=== PATIENT | female | born 1965 | race Caucasian/White ===

== ENCOUNTER 2016-05-05 13:22 | Emergency (ER) | payer OTHER ==
[2016-05-05] MEDS ORDERED: oxyCODONE/Acetamin 5/325 MG* TAB PO ONE (16:35)
--- NOTE | 2016-05-05 17:02 | RAD ---
INDICATION: Bone by 24 head COMPARISON: None TECHNIQUE: Axial source images were acquired through the orbits. Coronal and sagittal reconstructed images were acquired. FINDINGS: Bones: There is no acute orbital fracture or fractures visualized facial bones. Orbits: The globes and intraconal structures appear intact. The optic nerves are symmetric. Extraocular muscles appear normal. There is no intraconal inflammatory change or retrobulbar mass.. Paranasal sinuses: The paranasal sinuses are clear. Brain: There are no acute abnormalities of the visualized brain parenchyma. Soft tissues: There there is mild soft tissue swelling in the frontal region to the left of midline. There is no foreign body Other: None The visualized soft tissue elements about the neck appear normal. IMPRESSION: NONCONTRAST CT IMAGING OF THE ORBITS DEMONSTRATE NO SPECIFIC CT ABNORMALITIES.
--- NOTE | 2016-05-05 17:21 | ED ---
Throat Pain/Nasal Congestion - HPI Summary HPI Summary: Patient presents to ED with CC of left eye pain, swelling, warmth, redness and blurry vision. 3 days ago, patient was bit by a spider (spider was not witnessed), with immediate swelling, redness and warmth over the lesion. 1 day later, she began to experience blurry vision and other symptoms listed above. Now, since this morning the redness and warmth has spread to the right eye, however she denies blurry vision. 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 Denies fever. - History of Current Complaint Chief Complaint: EDEyeProblem Hx Obtained From: Patient Onset/Duration: Gradual Onset Severity: Moderate Associated Signs And Symptoms: Positive: Negative Related History: Smoking - Epiglottits Risk Factors Epiglottis Risk Factors: Negative - Allergies/Home Medications Allergies/Adverse Reactions: Allergies Allergy/AdvReac Type Severity Reaction Status Date / Time Ibuprofen [From Motrin] Allergy Intermediate FACIAL Verified 05/05/16 13:26 SWELLING PMH/Surg Hx/FS Hx/Imm Hx Previously Healthy: Yes Endocrine/Hematology History: Reports: Hx Diabetes - IDDM Cardiovascular History: Denies: Other Cardiovascular Problems/Disorders Respiratory History: Reports: Hx Asthma - albuterol and advair INHALERS + singulair, Hx Seasonal Allergies - takes daily anti-histamines Denies: Other Respiratory Problems/Disorders GI History: Reports: Hx Gastroesophageal Reflux Disease - omeprazole, Hx Ulcer Denies: Other GI Disorders Musculoskeletal History: Reports: Hx Tendonitis - RIGHT HAND Denies: Hx Osteoporosis Comment Only: Hx Arthritis - RIGHT KNEE, LEFT SHOULDER Sensory History: Reports: Hx Contacts or Glasses - bifocals Opthamlomology History: Reports: Hx Contacts or Glasses - bifocals Neurological History: Reports: Hx Headaches Denies: Other Neuro Impairments/Disorders Psychiatric History: Reports: Hx Anxiety - ON MEDS, Hx Depression - ON MEDS - Surgical History Surgery Procedure, Year, and Place: RIGHT CARPAL TUNNEL, 2003, [facility]. 2006, HYSTERECTOMY, [facility]. 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, Hx Shingles - LEFT SIDE OF FACE Denies: Traveled Outside the [place] in Last 30 Days - Family History Known Family History: Positive: Hypertension, Diabetes - Social History Occupation: Disabled Lives: Alone Alcohol Use: None Substance Use Type: Reports: None Smoking Status (MU): Former Smoker Type: Cigarettes Amount Used/How Often: PACK A DAY Have You Smoked in the Last Year: Yes Review of Systems Constitutional: Negative Positive: Blurred Vision - of left eye, Erythema - lanny-oribital erythema bilaterally ENT: Negative Cardiovascular: Negative Respiratory: Negative Positive: Other - small 1X1 raised lesion over L side forehead with erythema surrounding, with no excoriation or drainage. does not itch Neurological: Negative Psychological: Normal All Other Systems Reviewed And Are Negative: Yes Physical Exam Triage Information Reviewed: Yes Vital Signs On Initial Exam: Initial Vitals Temp Pulse Resp BP Pulse Ox 98.5 F 94 18 103/70 95 05/05/16 13:26 05/05/16 13:26 05/05/16 13:26 05/05/16 13:26 05/05/16 13:26 Vital Signs Reviewed: Yes Appearance: Positive: Well-Appearing, No Pain Distress Skin: Positive: Warm, Erythema @ - eyes bilaterally, Other - lanny-oribital erythema bilaterally. small 1X1 raised lesion over L side forehead with erythema surrounding, with no excoriation or drainage. does not itch Head/Face: Positive: Normal Head/Face Inspection Eyes: Positive: EOMI, MARINA, Conjunctiva Inflammed - conjunctiva without exudates ENT: Positive: Pharynx normal, TMs normal Neck: Positive: Supple, Nontender, No Lymphadenopathy Respiratory/Lung Sounds: Positive: Clear to Auscultation Cardiovascular: Positive: Normal Musculoskeletal: Positive: Normal Neurological: Positive: Normal Psychiatric: Positive: Normal AVPU Assessment: Alert Diagnostics - Vital Signs Vital Signs Temp Pulse Resp BP Pulse Ox 05/05/16 14:57 98.9 F 84 18 107/76 98 05/05/16 13:26 98.5 F 94 18 103/70 95 - Laboratory Lab Statement: Any lab studies that have been ordered have been reviewed, and results considered in the medical decision making process. - CT No standard instances CT Interpretation: No Acute Changes, Positive (See Comments) CT Interpretation Completed By: Radiologist - orbital CT negative for acute findings. EENT Course/Dx - Course Course Of Treatment: erythema, warmth, blurry vision surrounding eyes bilaterally. CT of the orbit showed no acute changes or findings. Patient without temp. previous MRSA positive of face. 1X1 raised lesion over L eye/ forehead with surrounding erythema. EOMI. Denies pain behind eye or heat from eye. This is likely a cellulitis infection possibly caused by the forehead lesion. preseptal cellulitis is likely. Can be treated as outpatient with clindamycin and erythromycin ointment. MD made aware and agrees with plan. Close follow up this week with opthomology. - Differential Diagnoses Differential Diagnoses: Cellulitis, Glaucoma, Periorbital/Orbital Cellulitis, Uveitis - Diagnoses Provider Diagnoses: Cellulitis and abscess of face Discharge - Discharge Plan Condition: Stable Disposition: HOME Prescriptions: Clindamycin Cap(NF) [Cleocin 300 mg Cap(NF)] 300 mg PO Q6H #28 cap MDD 4 Clindamycin Cap(NF) [Cleocin 300 mg Cap(NF)] 300 mg PO Q6H #28 cap MDD 4 HYDROcodone/ACETAMIN 5-325 MG* [[place] 5-325 TAB*] 1 tab PO Q4H PRN #15 tab MDD 6 PRN Reason: Pain HYDROcodone/ACETAMIN 5-325 MG* [[place] 5-325 TAB*] 1 tab PO Q4H PRN #15 tab MDD 6 PRN Reason: Pain Hydrocodone-Acetaminophen [Hydrocodone/Acetaminophen 5-325 mg] 1 tab PO Q4HR PRN #15 tab MDD 6 PRN Reason: Pain Tobramycin 0.3% OPHTH.MARYANN* 1 drop BOTH EYES Q4H #1 btl Tobramycin 0.3% OPHTH.MARYANN* 1 drop BOTH EYES Q4H #1 btl Patient Education Materials: Cellulitis (ED) Referrals: Trevon Ha MD [Primary Care Provider] - Apollo Malik MD [Medical Doctor] - Additional Instructions: Come back to ED if fever develops. Follow up with ophthalmology this week. If worsening blurry vision, you develop RUBIN, worsening redness, warmth or red streaking away from the eye, come back to ED. Clindamycin has been prescribed to you. Do not stop taking this medication until gone. Tobramycin drops in each eye 4 times daily until symptoms are gone. Hydrocodone-acetaminophen as needed for pain associated symptoms. Images - Images Head: 1 - small 1X1 raised papule with surrounding erythema without excoriations or drainage 2 - erythema and slight swelling surround eyes bilaterally with warmth and tenderness
[2016-05-05] MEDS ORDERED: HYDROcodone/ACETAMIN 5-325 MG* 1 TAB PO ONE (18:07)
[2016-05-05] MEDS ORDERED: Clindamycin CAP* 150 MG PO ONE ×2 (18:13→18:16)
[2016-05-05] MEDS ORDERED: Tobramycin/Dexameth OPTH.SUSP* 2.5 M L BTL BOTH EYES SCH (18:30)
[2016-05-05 18:56] VITALS: BP 111/70
== END 2016-05-05 18:55 | disposition home or self-care (01) ==
LOC: ED 13:22
DX: L03.211 Cellulitis of face (principal)
CPT/HCPCS: 70480; 99283; A9270-GY

== ENCOUNTER 2018-04-03 10:05 | Emergency (ER) | payer OTHER ==
--- NOTE | 2018-04-03 10:47 | ED ---
Throat Pain/Nasal Congestion - HPI Summary HPI Summary: Patient presents with URI symptoms 2 weeks. She reports this started as a sore throat with sneezing, coughing and congestion. She now has sinus pain and pressure and cough - persistent sore throat. She reports she has dysphagia with eating or drinking however she has been drinking coffee during the day and treating juice at night. She also reports a history of diabetes - treats this with Lantus once a day and metformin. She has been checking her glucose and reports between 120-200 which is normal for her - was 87 2 morning ago but hasn' t dropped since. Nausea. Has chest discomfort with coughing in the upper anterior portion however denies other chest pain, shortness of breath, abdominal pain, vomiting, diarrhea, skin rash. Smokes 4 cigs per day and exposed to 2nd hand smoke (brother lives with her and smokes). 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 - History of Current Complaint Chief Complaint: EDFluSymptoms Time Seen by Provider: 04/03/18 10:33 Hx Obtained From: Patient - Allergies/Home Medications Allergies/Adverse Reactions: Allergies Allergy/AdvReac Type Severity Reaction Status Date / Time ibuprofen Allergy Swelling Verified 04/03/18 10:29 Of Face,Lips,& Throat PMH/Surg Hx/FS Hx/Imm Hx Previously Healthy: Yes Endocrine/Hematology History: Reports: Hx Diabetes - IDDM (lanuts + metformin) Denies: Hx Anticoagulant Therapy, Hx Blood Disorders, Autoimmune Disease Cardiovascular History: Denies: Other Cardiovascular Problems/Disorders Respiratory History: Reports: Hx Asthma - albuterol and advair INHALERS + singulair, Hx Seasonal Allergies - takes daily anti-histamines Denies: Other Respiratory Problems/Disorders GI History: Reports: Hx Gastroesophageal Reflux Disease - omeprazole, Hx Ulcer Denies: Other GI Disorders Musculoskeletal History: Reports: Hx Tendonitis - RIGHT HAND Denies: Hx Osteoporosis Comment Only: Hx Arthritis - RIGHT KNEE, LEFT SHOULDER Sensory History: Reports: Hx Contacts or Glasses - bifocals Opthamlomology History: Reports: Hx Contacts or Glasses - bifocals Neurological History: Reports: Hx Headaches, Hx Peripheral Neuropathy - 2ndry to DM Denies: Other Neuro Impairments/Disorders Psychiatric History: Reports: Hx Anxiety - ON MEDS, Hx Depression - ON MEDS - Surgical History Surgery Procedure, Year, and Place: RIGHT CARPAL TUNNEL, 2003, [facility]. 2006, HYSTERECTOMY, [facility]. LEFT SHOULDER, [facility], 2013 Hx Anesthesia Reactions: No Infectious Disease History: No Infectious Disease History: Reports: Hx of Known/Suspected MRSA - eye and corner of mouth, Hx Shingles - LEFT SIDE OF FACE Denies: Traveled Outside the [place] in Last 30 Days - Family History Known Family History: Positive: Hypertension, Diabetes - Social History Lives: With Family - brother Alcohol Use: None Substance Use Type: Reports: Marijuana - as needed for peripheral neuropathy - not daily Hx Tobacco Use: Yes Smoking Status (MU): Current Every Day Smoker Type: Cigarettes Amount Used/How Often: 4 cigs per day - was 2 PPD smoker in past Have You Smoked in the Last Year: Yes Review of Systems Constitutional: Negative Negative: Fever, Chills, Fatigue Eyes: Negative Positive: Sore Throat, Nasal Discharge Cardiovascular: Negative Positive: Cough Positive: Nausea. Negative: Abdominal Pain, Vomiting, Diarrhea Genitourinary: Negative Musculoskeletal: Negative Skin: Negative Positive: Headache - sinus pain/pressure Psychological: Normal All Other Systems Reviewed And Are Negative: Yes Physical Exam Triage Information Reviewed: Yes Vital Signs On Initial Exam: Initial Vitals Temp Pulse Resp BP Pulse Ox 97.6 F 81 20 133/64 95 04/03/18 10:12 04/03/18 10:12 04/03/18 10:12 04/03/18 10:12 04/03/18 10:12 Vital Signs Reviewed: Yes Appearance: Positive: Well-Appearing, No Pain Distress, Well-Nourished Skin: Positive: Warm, Skin Color Reflects Adequate Perfusion, Dry - no rash Head/Face: Positive: Normal Head/Face Inspection Eyes: Positive: Normal, EOMI, Conjunctiva Clear. Negative: Conjunctiva Inflammed, Discharge ENT: Positive: Hearing grossly normal, Nasal congestion, TMs normal, Sinus tenderness, Uvula midline. Negative: Pharynx normal - mucosa dry -cobblestoning , Nasal drainage, Tonsillar swelling, Tonsillar exudate, Trismus, Muffled voice , Hoarse voice Neck: Positive: Supple, No Lymphadenopathy, Tenderness @ - mild cc tenderness - no stiffness Respiratory/Lung Sounds: Positive: Clear to Auscultation, Breath Sounds Present. Negative: Rales, Rhonchi, Wheezes Cardiovascular: Positive: RRR, S1, S2 Abdomen Description: Positive: Nontender, No Organomegaly, Soft Bowel Sounds: Positive: Present Musculoskeletal: Positive: Normal, Strength/ROM Intact Neurological: Positive: Normal, Sensory/Motor Intact, Alert, Oriented to Person Place, Time, CN Intact II-III Psychiatric: Positive: Normal Diagnostics - Vital Signs Vital Signs Temp Pulse Resp BP Pulse Ox 04/03/18 10:12 97.6 F 81 20 133/64 95 - Laboratory Lab Statement: Any lab studies that have been ordered have been reviewed, and results considered in the medical decision making process. EENT Course/Dx - Course Course Of Treatment: CXR: Patchy middle rt lobe consolidation. DM appears to be well controlled, especially given PNA and what appears to be sinus infection. Supportive care education including substantial liquid intake as well as soft foods to prevent hypoglycemia and aid in her healing process, strength. Will tx w/ levaquin and advise close f/u w/ PCP. Reviewed danger s/ sx of when to return to ED. Pt agrees w/ plan. - Diagnoses Provider Diagnoses: Right middle lobe pneumonia, Sinusitis Discharge - Sign-Out/Discharge Documenting (check all that apply): Patient Departure - Discharge Plan Condition: Stable Disposition: HOME Prescriptions: Levofloxacin TAB* [Levaquin TAB*] 750 mg PO DAILY #10 tab Patient Education Materials: Bacterial Pneumonia (ED), Sinusitis (ED), How to Stop Smoking (ED) Referrals: Trevon Ha MD [Primary Care Provider] - Additional Instructions: You appear to have a right sided pneumonia as well as a sinus infection. See education for details and complete medications as directed. It is important that you follow-up with your PCP this week for recheck of symptoms - call Tuesday to schedule an appointment. Continue to check your blood sugar nad make sure you are consuming calories and liquids throughout the day. See options below for supportive care through your illness: Nasal wash (netti pot or saline spray) & salt water throat gargles 2 x day to reduce nasal congestion, pain and sore throat Drink you body weight in ounces of water every day - you may also drink low calorie juices, gatorade 2 and soup broths as well as smoothies/yogurt Sleep 8+ hours per night Avoid milk, ice cream, etc and sugar Hot herbal/decaf tea with lemon & small amount of honey Chicken broth (preferably organic, free range chicken) Humidifier in house, but especially near bed at night Keep home temperature at 68F or less to reduce dryness Use cough drops/throat lozenges Try a facial steam with or without eucalyptus essential oil or Edy's Vapor rub for congestion Avoid smoke, candles, perfumes, colognes, scented soaps/detergents , air fresheners and cleaning chemicals as these can cause airway irritation and trigger coughing Start Vitamin C 1000mg every day x winter months Start probiotics in between antibiotics (ie. Yogurt and/or capsules of L. acidophilus, L. bifidus, L. casei, etc) If you develop high fever, vomiting, severe headache, high sugars, difficulty breathing or swallowing, return to the ED - Billing Disposition and Condition Condition: STABLE Disposition: Home
[2018-04-03] MEDS ORDERED: Levofloxacin TAB* 250 MG PO ONE (12:13)
[2018-04-03] MEDS ORDERED: Levofloxacin TAB* 750 MG ONE (12:22)
[2018-04-03 12:39] VITALS: BP 117/74
== END 2018-04-03 12:38 | disposition home or self-care (01) ==
LOC: ED 10:05
DX: J18.9 Pneumonia, unspecified organism (principal); J32.9 Chronic sinusitis, unspecified; E11.9 Type 2 diabetes mellitus without complications; Z79.84 Long term (current) use of oral hypoglycemic drugs; K21.9 Gastro-esophageal reflux disease without esophagitis; J45.909 Unspecified asthma, uncomplicated; F41.9 Anxiety disorder, unspecified; F32.9 Major depressive disorder, single episode, unspecified; G62.9 Polyneuropathy, unspecified; F17.210 Nicotine dependence, cigarettes, uncomplicated
CPT/HCPCS: 71046; 87651; 99282; A9270-GY

== ENCOUNTER 2018-06-02 20:30 | Emergency (ER) | payer OTHER ==
[2018-06-02] MEDS ORDERED: predniSONE TAB* 20 MG PO ONE ×2 (21:05→21:11)
--- NOTE | 2018-06-02 21:11 | ED ---
Allergic Reaction/Systemic - HPI Summary HPI Summary: Patient complains of facial redness, swelling, pruritus, tenderness 3 days. Denies prior history of same. Denies oral swelling or respiratory compromise. Denies new lotions, soaps, makeup, detergents. Patient takes banophen ( diphenhydramine) daily. Denies any other symptoms, injury or pain. - History of Current Complaint Chief Complaint: EDGeneral Time Seen by Provider: 06/02/18 20:51 Hx Obtained From: Patient Onset/Duration: Gradual Onset, Started days ago Timing: Constant Severity Initially: Moderate Severity Currently: Moderate Pain Intensity: 8 Pain Scale Used: 0-10 Numeric Character: Swelling, Pruritus, Pain Aggravating Factor(s): Nothing Alleviating Factor(s): Nothing Associated Signs And Symptoms: Positive: Negative - Allergies/Home Medications Allergies/Adverse Reactions: Allergies Allergy/AdvReac Type Severity Reaction Status Date / Time dog dander Allergy Rash Verified 06/02/18 20:51 ibuprofen Allergy Swelling Verified 04/03/18 10:29 Of Face,Lips,& Throat PMH/Surg Hx/FS Hx/Imm Hx Endocrine/Hematology History: Reports: Hx Diabetes - IDDM (lanuts + metformin) Denies: Hx Anticoagulant Therapy, Hx Blood Disorders Cardiovascular History: Denies: Other Cardiovascular Problems/Disorders Respiratory History: Reports: Hx Asthma - albuterol and advair INHALERS + singulair, Hx Seasonal Allergies - takes daily anti-histamines Denies: Other Respiratory Problems/Disorders GI History: Reports: Hx Gastroesophageal Reflux Disease - omeprazole, Hx Ulcer Denies: Other GI Disorders Musculoskeletal History: Reports: Hx Tendonitis - RIGHT HAND Denies: Hx Osteoporosis Comment Only: Hx Arthritis - RIGHT KNEE, LEFT SHOULDER Sensory History: Reports: Hx Contacts or Glasses - bifocals Opthamlomology History: Reports: Hx Contacts or Glasses - bifocals Neurological History: Reports: Hx Headaches, Hx Peripheral Neuropathy - 2ndry to DM Denies: Other Neuro Impairments/Disorders Psychiatric History: Reports: Hx Anxiety - ON MEDS, Hx Depression - ON MEDS - Surgical History Surgery Procedure, Year, and Place: RIGHT CARPAL TUNNEL, 2003, [facility]. 2006, HYSTERECTOMY, [facility]. LEFT SHOULDER, [facility], 2013 Hx Anesthesia Reactions: No Infectious Disease History: No Infectious Disease History: Reports: Hx of Known/Suspected MRSA - eye and corner of mouth, Hx Shingles - LEFT SIDE OF FACE Denies: Traveled Outside the [place] in Last 30 Days - Family History Known Family History: Positive: Hypertension, Diabetes - Social History Alcohol Use: None Alcohol Amount: hx ETOH abuse, in recovery since 1995 Substance Use Type: Reports: None Hx Tobacco Use: Yes Smoking Status (MU): Heavy Every Day Tobacco Smoker Type: Cigarettes Amount Used/How Often: 4 cigs per day - was 2 PPD smoker in past Have You Smoked in the Last Year: Yes Review of Systems Constitutional: Negative Eyes: Negative ENT: Negative Cardiovascular: Negative Respiratory: Negative Gastrointestinal: Negative Genitourinary: Negative Musculoskeletal: Negative Positive: Rash Neurological: Negative Psychological: Normal All Other Systems Reviewed And Are Negative: Yes Physical Exam - Summary Physical Exam Summary: Face is erythematous, thickened skin. Rash is bilateral. No vesicles. Perioral swelling. Rash limited only to to face. No involvement of eyes. Triage Information Reviewed: Yes Vital Signs On Initial Exam: Initial Vitals Temp Pulse Resp BP Pulse Ox 98.7 F 79 16 136/81 95 06/02/18 20:33 06/02/18 20:33 06/02/18 20:33 06/02/18 20:33 06/02/18 20:33 Vital Signs Reviewed: Yes Appearance: Positive: Well-Appearing Skin: Positive: Warm Head/Face: Positive: Normal Head/Face Inspection Eyes: Positive: Normal ENT: Positive: Normal ENT inspection Neck: Positive: Supple Respiratory/Lung Sounds: Positive: Clear to Auscultation Cardiovascular: Positive: Normal Abdomen Description: Positive: Nontender Musculoskeletal: Positive: Normal Neurological: Positive: Normal Psychiatric: Positive: Normal AVPU Assessment: Alert - [place] Coma Scale Best Eye Response: 4 - Spontaneous Best Motor Response: 6 - Obeys Commands Best Verbal Response: 5 - Oriented Coma Scale Total: 15 Diagnostics - Vital Signs Vital Signs Temp Pulse Resp BP Pulse Ox 06/02/18 20:33 98.7 F 79 16 136/81 95 - Laboratory Lab Statement: Any lab studies that have been ordered have been reviewed, and results considered in the medical decision making process. Allergic Reaction Course/Dx - Course Course Of Treatment: Patient complains of facial redness, swelling, pruritus, tenderness 3 days. Denies prior history of same. Denies oral swelling or respiratory compromise. Denies new lotions, soaps, makeup, detergents. Patient takes banophen (diphenhydramine) daily. Denies any other symptoms, injury or pain. Physical exam:Face is erythematous, thickened skin. Rash is bilateral. No vesicles. Perioral swelling. Rash limited only to to face. No involvement of eyes. Vital signs within normal limits. Patient based on trial of prednisone. If symptoms do not resolve follow-up with dermatology. Patient understands and approves of plan. - Diagnoses Provider Diagnoses: Rash Discharge - Sign-Out/Discharge Documenting (check all that apply): Patient Departure Patient Received Moderate/Deep Sedation with Procedure: No - Discharge Plan Condition: Stable Disposition: HOME Prescriptions: predniSONE TAB* [Deltasone 20 MG TAB*] 40 mg PO DAILY 5 Days #10 tab Patient Education Materials: Acute Rash (ED) Referrals: Trevon Ha MD [Primary Care Provider] - Maria Isabel Ochoa MD [Medical Doctor] - Additional Instructions: If symptoms have not improved with the prednisone after one week follow-up with dermatology Dr. Ochoa for further evaluation. Return to the ED for any new or worsening symptoms. - Billing Disposition and Condition Condition: STABLE Disposition: Home
[2018-06-02 21:36] VITALS: BP 124/85
== END 2018-06-02 21:34 | disposition home or self-care (01) ==
LOC: ED 20:30
DX: R21 Rash and other nonspecific skin eruption (principal); E11.9 Type 2 diabetes mellitus without complications; Z79.4 Long term (current) use of insulin; Z79.84 Long term (current) use of oral hypoglycemic drugs; J45.909 Unspecified asthma, uncomplicated; K21.9 Gastro-esophageal reflux disease without esophagitis; F41.9 Anxiety disorder, unspecified; F32.9 Major depressive disorder, single episode, unspecified; Z86.14 Personal history of Methicillin resistant Staphylococcus aureus infection; Z88.6 Allergy status to analgesic agent; F17.210 Nicotine dependence, cigarettes, uncomplicated
CPT/HCPCS: 99282; J7512

== ENCOUNTER 2018-09-18 08:28 | Emergency (ER) | payer OTHER ==
--- NOTE | 2018-09-18 09:23 | ED ---
Lower Extremity - HPI Summary HPI Summary: Patient is a 53-year-old female who presents emergency department for a right foot injury that occurred last night. Pt. notes she hit her right foot on a TV stand during the night. Patient states she noticed swelling and bruising this morning and presents for evaluation. Pain with ambulation. Symptoms are mild in severity. - History of Current Complaint Chief Complaint: EDExtremityLower Stated Complaint: RIGHT FOOT AND ANKLE PAIN PER PT Time Seen by Provider: 09/18/18 09:09 Hx Obtained From: Patient Pain Intensity: 9 - Allergies/Home Medications Allergies/Adverse Reactions: Allergies Allergy/AdvReac Type Severity Reaction Status Date / Time dog dander Allergy Rash Verified 09/18/18 08:37 ibuprofen Allergy Swelling Verified 09/18/18 08:37 Of Face,Lips,& Throat PMH/Surg Hx/FS Hx/Imm Hx Previously Healthy: Yes Endocrine/Hematology History: Reports: Hx Diabetes - IDDM (lanuts + metformin) Denies: Hx Anticoagulant Therapy, Hx Blood Disorders Cardiovascular History: Denies: Other Cardiovascular Problems/Disorders Respiratory History: Reports: Hx Asthma - albuterol and advair INHALERS + singulair, Hx Seasonal Allergies - takes daily anti-histamines Denies: Other Respiratory Problems/Disorders GI History: Reports: Hx Gastroesophageal Reflux Disease - omeprazole, Hx Ulcer Denies: Other GI Disorders Musculoskeletal History: Reports: Hx Tendonitis - RIGHT HAND Denies: Hx Osteoporosis Comment Only: Hx Arthritis - RIGHT KNEE, LEFT SHOULDER Sensory History: Reports: Hx Contacts or Glasses - bifocals Opthamlomology History: Reports: Hx Contacts or Glasses - bifocals Neurological History: Reports: Hx Headaches, Hx Peripheral Neuropathy - 2ndry to DM Denies: Other Neuro Impairments/Disorders Psychiatric History: Reports: Hx Anxiety - ON MEDS, Hx Depression - ON MEDS - Surgical History Surgery Procedure, Year, and Place: RIGHT CARPAL TUNNEL, 2003, [facility]. 2006, HYSTERECTOMY, [facility]. LEFT SHOULDER, [facility], 2013 Hx Anesthesia Reactions: No Infectious Disease History: No Infectious Disease History: Reports: Hx of Known/Suspected MRSA - eye and corner of mouth, Hx Shingles - LEFT SIDE OF FACE Denies: Traveled Outside the [place] in Last 30 Days - Family History Known Family History: Positive: Hypertension, Diabetes, Non-Contributory - Social History Occupation: Unemployed Lives: With Family Alcohol Use: None Alcohol Amount: hx ETOH abuse, in recovery since 1995 Substance Use Type: Reports: None Hx Tobacco Use: Yes Smoking Status (MU): Heavy Every Day Tobacco Smoker Type: Cigarettes Amount Used/How Often: 4 cigs per day - was 2 PPD smoker in past Have You Smoked in the Last Year: Yes Review of Systems Positive: Other - right foot pain Positive: Bruising - right foot Neurological: Negative Negative: Weakness, Paresthesia, Numbness All Other Systems Reviewed And Are Negative: Yes Physical Exam Triage Information Reviewed: Yes Vital Signs On Initial Exam: Initial Vitals Temp Pulse Resp BP Pulse Ox 98.2 F 89 18 114/76 96 09/18/18 08:35 09/18/18 08:35 09/18/18 08:35 09/18/18 08:35 09/18/18 08:35 Vital Signs Reviewed: Yes Appearance: Positive: Well-Appearing - Pt. sitting in wheelchair in NAD. Skin: Positive: Warm, Dry Head/Face: Positive: Normal Head/Face Inspection Eyes: Positive: Normal, EOMI, MARINA Neck: Positive: Supple Musculoskeletal: Positive: Other - Mild edema and ecchymosis noted to right foot on the dorsal aspect. No breaks in skin. Good pedal pulse. No proximal ankle pain. Neurological: Positive: Normal, CN Intact II-III Procedures - Splinting Right Lower Extremity Pre-Made Type: acewrap Pre-Proc Neuro Vasc Exam: normal Post-Proc Neuro Vasc Exam: normal Diagnostics - Vital Signs Vital Signs Temp Pulse Resp BP Pulse Ox 09/18/18 08:35 98.2 F 89 18 114/76 96 - Laboratory Lab Statement: Any lab studies that have been ordered have been reviewed, and results considered in the medical decision making process. Lower Extremity Course/Dx - Course Course Of Treatment: X-rays right foot negative for acute findings, reading per radiology. Jimmie wrap placed. Advised ice and elevation. Tylenol for pain as directed. Activity as tolerated. Follow-up with PCP if pain persists. Patient understands and agrees with plan. - Diagnoses Differential Diagnosis/HQI/PQRI: Positive: Contusion, Fracture (Closed), Sprain , Strain Provider Diagnoses: Foot sprain Discharge - Sign-Out/Discharge Documenting (check all that apply): Patient Departure Patient Received Moderate/Deep Sedation with Procedure: No - Discharge Plan Condition: Good Disposition: HOME Patient Education Materials: Foot Sprain (ED) Referrals: Trevon Ha MD [Primary Care Provider] - Additional Instructions: Follow up with PCP if pain persist Ice and elevate Tylenol for pain as directed Activity as tolerated Return to ER if symptoms change or worsen - Billing Disposition and Condition Condition: GOOD Disposition: Home
[2018-09-18 09:42] VITALS: BP 109/76
== END 2018-09-18 09:40 | disposition home or self-care (01) ==
LOC: ED 08:28
DX: S93.601A Unspecified sprain of right foot, initial encounter (principal); M79.671 Pain in right foot; F17.210 Nicotine dependence, cigarettes, uncomplicated; W22.09XA Striking against other stationary object, initial encounter; Y92.9 Unspecified place or not applicable; K21.9 Gastro-esophageal reflux disease without esophagitis
CPT/HCPCS: 99281

== ENCOUNTER 2018-10-07 11:30 | Emergency (ER) | payer OTHER ==
[2018-10-07] MEDS ORDERED: oxyCODONE/Acetamin 5/325 MG* TAB PO ONE (12:49)
--- NOTE | 2018-10-07 12:52 | ED ---
Back Pain - HPI Summary HPI Summary: This patient is a 53 year old F presenting to ED with a chief complaint of right lower back pain since 0600 this morning. The pain woke her up. Patient had an injury 35 years ago but no recent injury. She took Tylenol 500mg at 0600. She denies wanting any x-rays done and is requesting hydrocodone. The patient rates the pain 8/10 in severity. Symptoms aggravated by nothing. Symptoms alleviated by nothing. Patient denies abdominal pain, bowel symptoms, or urinary symptoms. - History of Current Complaint Chief Complaint: EDBackInjuryPain Stated Complaint: LOWER BACK PAIN PER PT Time Seen by Provider: 10/07/18 12:36 Hx Obtained From: Patient Onset/Duration: Sudden Onset, Lasting Hours - Since 060 this mroning, Still Present Onset/Duration: Started Hours Ago - 0600 this morning, Atraumatic, Still Present Timing: Constant Back Pain Location: Is Discrete @ - Right lower back Severity Initially: Severe Severity Currently: Severe Pain Intensity: 8 Pain Scale Used: 0-10 Numeric Aggravating Symptom(s): Nothing Alleviating Symptom(s): Nothing Associated Signs And Symptoms: Negative: Abdominal Pain, Bladder Incontinence, Bowel Incontinence - Allergies/Home Medications Allergies/Adverse Reactions: Allergies Allergy/AdvReac Type Severity Reaction Status Date / Time dog dander Allergy Rash Verified 09/18/18 08:37 ibuprofen Allergy Swelling Verified 09/18/18 08:37 Of Face,Lips,& Throat PMH/Surg Hx/FS Hx/Imm Hx Previously Healthy: No Endocrine/Hematology History: Reports: Hx Diabetes - IDDM (lanuts + metformin) Denies: Hx Anticoagulant Therapy, Hx Blood Disorders Cardiovascular History: Denies: Other Cardiovascular Problems/Disorders Respiratory History: Reports: Hx Asthma - albuterol and advair INHALERS + singulair, Hx Seasonal Allergies - takes daily anti-histamines Denies: Other Respiratory Problems/Disorders GI History: Reports: Hx Gastroesophageal Reflux Disease - omeprazole, Hx Ulcer Denies: Other GI Disorders Musculoskeletal History: Reports: Hx Tendonitis - RIGHT HAND Denies: Hx Osteoporosis Comment Only: Hx Arthritis - RIGHT KNEE, LEFT SHOULDER Sensory History: Reports: Hx Contacts or Glasses - bifocals Opthamlomology History: Reports: Hx Contacts or Glasses - bifocals Neurological History: Reports: Hx Headaches, Hx Peripheral Neuropathy - 2ndry to DM Denies: Other Neuro Impairments/Disorders Psychiatric History: Reports: Hx Anxiety - ON MEDS, Hx Depression - ON MEDS - Surgical History Surgery Procedure, Year, and Place: RIGHT CARPAL TUNNEL, 2003, [facility]. 2006, HYSTERECTOMY, [facility]. LEFT SHOULDER, [facility], 2013 Hx Anesthesia Reactions: No Infectious Disease History: No Infectious Disease History: Reports: Hx of Known/Suspected MRSA - eye and corner of mouth, Hx Shingles - LEFT SIDE OF FACE Denies: Traveled Outside the [place] in Last 30 Days - Family History Known Family History: Positive: Hypertension, Diabetes, Non-Contributory - Social History Alcohol Use: None Alcohol Amount: hx ETOH abuse, in recovery since 1995 Hx Substance Use: No Substance Use Type: Reports: None Hx Tobacco Use: Yes Smoking Status (MU): Light Every Day Tobacco Smoker Type: Cigarettes Amount Used/How Often: 4 cigs per day - was 2 PPD smoker in past Have You Smoked in the Last Year: Yes Review of Systems Gastrointestinal: Negative - Bowel symptoms Negative: Abdominal Pain Genitourinary: Negative - Urinary symptoms Musculoskeletal: Other - Right lower back pain All Other Systems Reviewed And Are Negative: Yes Physical Exam - Summary Physical Exam Summary: Appearance: Well appearing, no pain distress Skin: warm, dry, reflects adequate perfusion Head/face: normal Eyes: EOMI, MARINA ENT: normal Neck: supple, non-tender Respiratory: CTA, breath sounds present Cardiovascular: RRR, pulses symmetrical Abdomen: non-tender, soft Musculoskeletal: mild spasm of lower lumbar spine Neuro: normal, sensory motor intact, A&Ox3 Triage Information Reviewed: Yes Vital Signs On Initial Exam: Initial Vitals Temp Pulse Resp BP Pulse Ox 98.1 F 96 18 167/104 96 10/07/18 11:37 10/07/18 11:37 10/07/18 11:37 10/07/18 11:37 10/07/18 11:37 Vital Signs Reviewed: Yes Diagnostics - Vital Signs Vital Signs Temp Pulse Resp BP Pulse Ox 10/07/18 11:37 98.1 F 96 18 167/104 96 - Laboratory Lab Statement: Any lab studies that have been ordered have been reviewed, and results considered in the medical decision making process. Back Pain Course/Dx - Course Course Of Treatment: This patient is a 53 year old F presenting to ED with a chief complaint of right lower back pain since 0600 this morning. The patient denies wanting any x-rays and only wants pain control as she is requesting hydrocodone. In the ED course, patient received Percocet. Therefore, the patient will be discharged home with dx of chronic back pain. Patient understands and agrees with this plan. - Diagnoses Differential Diagnosis/HQI/PQRI: Positive: Strain, Sprain Provider Diagnoses: Chronic back pain Discharge - Sign-Out/Discharge Documenting (check all that apply): Patient Departure - Discharge Patient Received Moderate/Deep Sedation with Procedure: No - Discharge Plan Condition: Stable Disposition: HOME Prescriptions: Oxycodone HCl/Acetaminophen [Percocet 5-325 mg Tablet] 1 each PO TID #9 tablet MDD 3 Patient Education Materials: Back Pain (ED), Opioid Safety (ED) Referrals: Trevon Ha MD [Primary Care Provider] - 3 Days Additional Instructions: D/C: Follow up with your primary care provider in three days. RETURN TO THE ER FOR WORSENING OR CHANGING SYMPTOMS. - Billing Disposition and Condition Condition: STABLE Disposition: Home - Attestation Statements Document Initiated by Scribe: Yes Documenting Scribe: Trevon Short Provider For Whom Grace is Documenting (Include Credential): Solomon Zeng MD Scribe Attestation: ITrevon, scribed for Solomon Zeng MD on 10/07/18 at 1846. Scribe Documentation Reviewed: Yes Provider Attestation: The documentation as recorded by the scribeTrevon accurately reflects the service I personally performed and the decisions made by me, Solomon Zeng MD Status of Scribe Document: Viewed
[2018-10-07 13:06] VITALS: BP 124/73
== END 2018-10-07 13:05 | disposition home or self-care (01) ==
LOC: ED 11:30
DX: M54.9 Dorsalgia, unspecified (principal); G89.29 Other chronic pain; Z88.6 Allergy status to analgesic agent; E11.9 Type 2 diabetes mellitus without complications; E11.42 Type 2 diabetes mellitus with diabetic polyneuropathy; J45.909 Unspecified asthma, uncomplicated; K21.9 Gastro-esophageal reflux disease without esophagitis; F17.210 Nicotine dependence, cigarettes, uncomplicated; Z79.4 Long term (current) use of insulin; Z79.51 Long term (current) use of inhaled steroids; Z79.899 Other long term (current) drug therapy
CPT/HCPCS: 99282; A9270-GY

== ENCOUNTER 2018-10-25 06:52 | Emergency (ER) | payer OTHER ==
[2018-10-25] MEDS ORDERED: oxyCODONE/Acetamin 5/325 MG* TAB PO ONE (08:32)
[2018-10-25] MEDS ORDERED: Methocarbamol TAB* 500 MG PO ONE (08:32)
--- NOTE | 2018-10-25 08:40 | ED ---
Back Pain - HPI Summary HPI Summary: 53-year-old female presents with aucte on chronic back pain. She denies any injury. She states she gets occasional pain down her legs. No weakness. No loss of bowel or bladder. No saddle anasethesia. no fevers. No urinary symptoms. She takes tramadol for her chronic pain. She states that her location of her pain is not changed. She states this is more intense and is unable to get any sleep. She is diabetic. - History of Current Complaint Chief Complaint: EDBackInjuryPain Stated Complaint: LOWER BACK PAIN PER PT Time Seen by Provider: 10/25/18 08:23 Pain Intensity: 8 - Allergies/Home Medications Allergies/Adverse Reactions: Allergies Allergy/AdvReac Type Severity Reaction Status Date / Time dog dander Allergy Rash Verified 10/25/18 06:58 ibuprofen Allergy Swelling Verified 10/25/18 06:58 Of Face,Lips,& Throat PMH/Surg Hx/FS Hx/Imm Hx Endocrine/Hematology History: Reports: Hx Diabetes - IDDM (lanuts + metformin) Denies: Hx Anticoagulant Therapy, Hx Blood Disorders Cardiovascular History: Denies: Other Cardiovascular Problems/Disorders Respiratory History: Reports: Hx Asthma - albuterol and advair INHALERS + singulair, Hx Seasonal Allergies - takes daily anti-histamines Denies: Other Respiratory Problems/Disorders GI History: Reports: Hx Gastroesophageal Reflux Disease - omeprazole, Hx Ulcer Denies: Other GI Disorders Musculoskeletal History: Reports: Hx Tendonitis - RIGHT HAND Denies: Hx Osteoporosis Comment Only: Hx Arthritis - RIGHT KNEE, LEFT SHOULDER Sensory History: Reports: Hx Contacts or Glasses - bifocals Opthamlomology History: Reports: Hx Contacts or Glasses - bifocals Neurological History: Reports: Hx Headaches, Hx Peripheral Neuropathy - 2ndry to DM Denies: Other Neuro Impairments/Disorders Psychiatric History: Reports: Hx Anxiety - ON MEDS, Hx Depression - ON MEDS - Surgical History Surgery Procedure, Year, and Place: RIGHT CARPAL TUNNEL, 2003, [facility]. 2006, HYSTERECTOMY, [facility]. LEFT SHOULDER, [facility], 2013 Hx Anesthesia Reactions: No Infectious Disease History: No Infectious Disease History: Reports: Hx of Known/Suspected MRSA - eye and corner of mouth, Hx Shingles - LEFT SIDE OF FACE Denies: Traveled Outside the [place] in Last 30 Days - Family History Known Family History: Positive: Hypertension, Diabetes, Non-Contributory - Social History Alcohol Use: None Alcohol Amount: hx ETOH abuse, in recovery since 1995 Hx Substance Use: No Substance Use Type: Reports: None Hx Tobacco Use: Yes Smoking Status (MU): Light Every Day Tobacco Smoker Type: Cigarettes Amount Used/How Often: 4 cigs per day - was 2 PPD smoker in past Have You Smoked in the Last Year: Yes Review of Systems Negative: Fever Negative: Chest Pain Negative: Shortness Of Breath Positive: Myalgia - back pain All Other Systems Reviewed And Are Negative: Yes Physical Exam Triage Information Reviewed: Yes Vital Signs On Initial Exam: Initial Vitals Temp Pulse Resp BP Pulse Ox 98.1 F 77 18 120/77 96 10/25/18 06:55 10/25/18 06:55 10/25/18 06:55 10/25/18 06:55 10/25/18 06:55 Vital Signs Reviewed: Yes Appearance: Positive: Well-Appearing Skin: Positive: Warm, Dry Head/Face: Positive: Normal Head/Face Inspection Eyes: Positive: Normal, Conjunctiva Clear ENT: Positive: Pharynx normal Respiratory/Lung Sounds: Positive: Clear to Auscultation, Breath Sounds Present Cardiovascular: Positive: Normal, RRR Abdomen Description: Positive: Nontender, Soft Bowel Sounds: Positive: Present Musculoskeletal: Positive: Strength/ROM Intact - back, Other - tenderness lower back, neg SLR, good pulses Neurological: Positive: Normal Gait, Babinski Bilateral - normal Psychiatric: Positive: Normal Diagnostics - Vital Signs Vital Signs Temp Pulse Resp BP Pulse Ox 10/25/18 06:55 98.1 F 77 18 120/77 96 - Laboratory Lab Statement: Any lab studies that have been ordered have been reviewed, and results considered in the medical decision making process. - Radiology back Radiology Interpretation Completed By: Radiologist Summary of Radiographic Findings: IMPRESSION: MODERATE TO SEVERE DEGENERATIVE DISC DISEASE. Re-Evaluation - Re-Evaluation First Eval Re-Evaluation Time: 09:40 Change: Improved Comment: feeling better Back Pain Course/Dx - Course Course Of Treatment: 53-year-old female presents with aucte on chronic back pain. She denies any injury. She states she gets occasional pain down her legs. No weakness. No loss of bowel or bladder. No saddle anasethesia. no fevers. No urinary symptoms. She takes tramadol for her chronic pain. She states that her location of her pain is not changed. She states this is more intense and is unable to get any sleep. She is diabetic. On exam tenderness of lower back. Negative straight leg raise. Neurovascularly intact. X-ray shows no fracture. patient already has script for tramadol and will be starting PT for shoulder so told her to follow up about back. has muscle relaxer at home. Told to follow-up with primary for continued care. Patient understands agrees with plan. - Diagnoses Differential Diagnosis/HQI/PQRI: Positive: Fracture, Herniated Disc, Strain Provider Diagnoses: Back pain Discharge - Sign-Out/Discharge Documenting (check all that apply): Patient Departure Patient Received Moderate/Deep Sedation with Procedure: No - Discharge Plan Condition: Good Disposition: HOME Patient Education Materials: Back Pain (ED) Referrals: Trevon Ha MD [Primary Care Provider] - Additional Instructions: take normal pain medication Use Tylenol for pain every 6 hours ice/heat area, move as much as possible Follow up with primary within 5 days Return to ED if develop any new or worsening symptoms - Billing Disposition and Condition Condition: GOOD Disposition: Home
[2018-10-25 09:50] VITALS: BP 110/73
== END 2018-10-25 09:50 | disposition home or self-care (01) ==
LOC: ED 06:52
DX: M54.9 Dorsalgia, unspecified (principal); E11.9 Type 2 diabetes mellitus without complications; J45.909 Unspecified asthma, uncomplicated; K21.9 Gastro-esophageal reflux disease without esophagitis; F17.210 Nicotine dependence, cigarettes, uncomplicated; Z79.4 Long term (current) use of insulin; Z79.899 Other long term (current) drug therapy; Z88.8 Allergy status to other drugs, medicaments and biological substances; M51.36 Other intervertebral disc degeneration, lumbar region
CPT/HCPCS: 72110; 99282; A9270-GY

== ENCOUNTER 2019-02-10 14:58 | Emergency (ER) | payer OTHER ==
--- NOTE | 2019-02-10 15:25 | ED ---
Adult Trauma - HPI Summary HPI Summary: This patient is a 53 year old F BIBA via EMS to ED with a chief complaint of mechanical fall last night. Patient today reports left ankle, right knee, right elbow, and lower back pain. She reports swelling of the left ankle. Patient is able to walk around on her right leg, but it is more difficult on her left leg. Patient previously reports having back problems. The patient rates the pain 8/ 10 in severity. Symptoms aggravated by nothing. Symptoms alleviated by nothing. Patient denies fever. - History of Current Complaint Chief Complaint: EDFall Stated Complaint: FALL PER EMS Time Seen by Provider: 02/10/19 15:01 Hx Obtained From: Patient Mechanism of Injury: Fall Loss of Consciousness: no loss of consciousness Onset/Duration: Started Days Ago - Last night, Traumatic Onset of Pain: Post Accident Onset Severity: Severe Current Severity: Severe Pain Intensity: 8 Pain Scale Used: 0-10 Numeric Location: Back, Extremities Aggravating Factor(s): Nothing Alleviating Factor(s): Nothing Associated Signs & Symptoms: Negative: Fever - Allergy/Home Medications Allergies/Adverse Reactions: Allergies Allergy/AdvReac Type Severity Reaction Status Date / Time dog dander Allergy Rash Verified 10/25/18 06:58 ibuprofen Allergy Swelling Verified 10/25/18 06:58 Of Face,Lips,& Throat PMH/Surg Hx/FS Hx/Imm Hx Endocrine/Hematology History: Reports: Hx Diabetes - IDDM (lanuts + metformin) Denies: Hx Anticoagulant Therapy, Hx Blood Disorders Cardiovascular History: Denies: Other Cardiovascular Problems/Disorders Respiratory History: Reports: Hx Asthma - albuterol and advair INHALERS + singulair, Hx Seasonal Allergies - takes daily anti-histamines Denies: Other Respiratory Problems/Disorders GI History: Reports: Hx Gastroesophageal Reflux Disease - omeprazole, Hx Ulcer Denies: Other GI Disorders Musculoskeletal History: Reports: Hx Back Problems, Hx Tendonitis - RIGHT HAND Denies: Hx Osteoporosis Comment Only: Hx Arthritis - RIGHT KNEE, LEFT SHOULDER Sensory History: Reports: Hx Contacts or Glasses - bifocals Opthamlomology History: Reports: Hx Contacts or Glasses - bifocals Neurological History: Reports: Hx Headaches, Hx Peripheral Neuropathy - 2ndry to DM Denies: Other Neuro Impairments/Disorders Psychiatric History: Reports: Hx Anxiety - ON MEDS, Hx Depression - ON MEDS - Surgical History Surgery Procedure, Year, and Place[place] [facility] [place] [facility]. LEFT SHOULDER, [facility], 2013 Hx Anesthesia Reactions: No Infectious Disease History: No Infectious Disease History: Reports: Hx of Known/Suspected MRSA - eye and corner of mouth, Hx Shingles - LEFT SIDE OF FACE Denies: Traveled Outside the [place] in Last 30 Days - Family History Known Family History: Positive: Hypertension, Diabetes - Social History Alcohol Use: None Alcohol Amount: hx ETOH abuse, in recovery since 1995 Hx Substance Use: Yes Substance Use Type: Reports: Marijuana Hx Tobacco Use: Yes Smoking Status (MU): Current Every Day Smoker Type: Cigarettes Amount Used/How Often: 4 cigs per day - was 2 PPD smoker in past Have You Smoked in the Last Year: Yes Review of Systems Negative: Fever Musculoskeletal: Other - Left ankle, right knee, right elbow, and low back pain. Swelling of left ankle. All Other Systems Reviewed And Are Negative: Yes Physical Exam - Summary Physical Exam Summary: Appearance: The patient is well-nourished in no acute distress and in no acute pain. Skin: Abrasion on right knee cap and right olecranon. HEENT: The head is normocephalic and atraumatic. The pupils are equal and reactive. The conjunctivae are clear and without drainage. Nares are patent and without drainage. Mouth reveals moist mucous membranes, and the throat is without erythema and exudate. The external ears are intact. The ear canals are patent and without drainage. The tympanic membranes are intact. Neck: The neck is supple with full range of motion and non-tender. There are no carotid bruits. There is no neck vein distension. Respiratory: Chest is non-tender. Lungs are clear to auscultation and breath sounds are symmetrical and equal. Cardiovascular: Heart is regular rate and rhythm. There is no murmur or rub auscultated. There is no peripheral edema and pulses are symmetrical and equal. Abdomen: The abdomen is soft and non-tender. There are normal bowel sounds heard in all four quadrants and there is no organomegaly palpated. Musculoskeletal: Swelling over the left ankle laterally mostly with no ligamentous laxity. Tenderness of left ankle to range of motion. Paralumbar tenderness, right worse than the left. Neurological: Patient is alert and oriented to person, place and time. The patient has symmetrical motor strength in all four extremities. Cranial nerves are grossly intact. Deep tendon reflexes are symmetrical and equal in all four extremities. Psychiatric: The patient has an appropriate affect and does not exhibit any anxiety or depression. Triage Information Reviewed: Yes Vital Signs On Initial Exam: Initial Vitals Temp Pulse Resp BP Pulse Ox 98.6 F 88 16 121/73 96 02/10/19 15:01 02/10/19 15:01 02/10/19 15:01 02/10/19 15:01 02/10/19 15:01 Vital Signs Reviewed: Yes Procedures - Sedation Patient Received Moderate/Deep Sedation with Procedure: No Diagnostics - Vital Signs Vital Signs Temp Pulse Resp BP Pulse Ox 02/10/19 15:01 98.6 F 88 16 121/73 96 - Laboratory Lab Statement: Any lab studies that have been ordered have been reviewed, and results considered in the medical decision making process. - Radiology L ankle XR Radiology Interpretation Completed By: Radiologist Summary of Radiographic Findings: Consider lateral supporting ligament injury. Dr. Rodriguez has reviewed this radiology report. - CT L-spine CT Interpretation Completed By: Radiologist Summary of CT Findings: #. Negative for lumbar sacral spine fracture or traumatic malalignment. #. Multilevel degenerative spondylosis and facet joint osteoarthritis without gross change compared with the October 25, 2018 radiographs. Multilevel acquired spinal stenosis as described level by level. Dr. Rodriguez has reviewed this radiology report. Re-Evaluation - Re-Evaluation First Eval Re-Evaluation Time: 17:52 Comment: Discussed results with patient. Patient will be discharged home with dx of ankle sprain and low back strain. Patient understands and agrees with this plan. Adult Trauma Course/Dx - Course Course Of Treatment: Ms. Spears had a mechanical fall yesterday and wrenched her low back, sustained an abrasion to her right elbow and right knee and twisted her left ankle. Her x-rays were negative for any acute fracture and she was placed on crutches and a gel cast and left ankle. Gave her prescription for tramadol for couple of days and recommended follow-up. - Diagnoses Provider Diagnoses: Left ankle sprain, Low back strain Discharge ED - Sign-Out/Discharge Documenting (check all that apply): Patient Departure - Discharge - Discharge Plan Condition: Stable Disposition: HOME Prescriptions: traMADol TAB* [Ultram*] 50 mg PO Q6HR PRN #20 tab MDD 4 PRN Reason: Pain Patient Education Materials: Ankle Sprain (ED), Low Back Strain (ED) Referrals: Trevon Ha MD [Primary Care Provider] - 3 Days Additional Instructions: Please follow-up with your primary care physician in 2-3 days. RETURN TO THE ER FOR WORSENING OR CHANGING SYMPTOMS. - Billing Disposition and Condition Condition: STABLE Disposition: Home - Attestation Statements Document Initiated by Farrahibe: Yes Documenting Scribe: Trevon Short Provider For Whom Grace is Documenting (Include Credential): Young Rodriguez MD Scribe Attestation: ITrevon, scribed for Young Rodriguez MD on 02/10/19 at 1849. Scribe Documentation Reviewed: Yes Provider Attestation: The documentation as recorded by the Trevon reyez accurately reflects the service I personally performed and the decisions made by me, Young Rodriguez MD Status of Scribe Document: Viewed
--- OUTSIDE RECORDS SUMMARY | 2019-02-10 16:18 | XMS REPORT | Summary of Care ---
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 Reason for Visit Reason Comments Medication Refill Encounter Details Date Type Department Care Team Description 12/28/2018 Office Visit [facility] Magalys Massey, Depression with anxiety (Primary Dx); Practice [facility] Diabetes mellitus without complication (HCC); [address] Chronic low back pain with left-sided sciatica, [place] [address] [place] [address] [phone] Allergies Active Allergy Reactions Severity Noted Date Comments Environmental Other 06/26/2010 Itchy watery eyes. Ra Ibuprofen Swelling 07/07/2010 documented as of this encounter (statuses as of 12/28/2018) Medications Medication Sig Dispensed Refills Start End Date Status Date albuterol 3 mL by 360 mg 3 Active (PROVENTIL, Inhalation-SVN 6 VENTOLIN) (2.5 route EVERY MG/3ML) 0.083% FOUR HOURS Inhalation Nebu NEEDED SolnIndications: (asthma). Asthma in adult, mild intermittent, uncomplicated fluticasone INHALE TWO 16 g 5 Active (FLONASE) 50 MCG/ACT SPRAYS IN EACH 7 Nasal Suspension NOSTRIL EVERY DAY Insulin Pen Needle 1 Device by 100 Each 5 Active (PENTIPS) 31G X 8 MM Does not apply 8 Does not apply Misc route DAILY. E11.9 mupirocin Apply small 15 g 0 Active (BACTROBAN) 2 % amount twice 8 Apply externally daily to Ointment affected area EPINEPHrine 0.3 1 Dose by 1 Each 2 Active MG/0.3ML Injection Injection 8 Solution route Auto-injector DIRECTED. Use if needed for bee allergy ACCU-CHEK FASTCLIX 1 Each by In 102 Each Active LANCETS Does not Vitro route 8 apply Misc TWICE DAILY. MINTOX 200-200-20 TAKE 15ML BY 840 mL Active MG/5ML Oral MOUTH EVERY 4 8 SuspensionIndication HOURS s: Flatulence, NEEDED FOR GAS eructation and gas AND ABDOMINAL pain PAIN ondansetron (ZOFRAN Take 1 Tab by 30 Tab Active ODT) 4 MG Oral mouth THREE 8 TABLET DISPERSIBLE TIMES DAILY NEEDED (nausea). Glucose Blood 1 Strip by In 100 Strip Active (FREESTYLE LITE) In Vitro route 8 Vitro Strip TWICE DAILY. Lancets Does not 1 Device by In 100 Each Active apply Misc Vitro route 8 TWICE DAILY. Insulin dependent Brand: insur preferred Omeprazole delayed TAKE ONE 60 Cap Active rel cap 20 MG Oral CAPSULE BY 9 CAPSULE DELAYED MOUTH TWICE A RELEASEIndications: DAY Non-intractable vomiting with nausea, unspecified vomiting type montelukast Take 1 Tab by 90 Tab Active (SINGULAIR) 10 MG mouth DAILY. 9 Oral Tab Pregabalin (LYRICA) Take 1 Cap by 60 Cap Active 150 MG Oral Cap mouth TWICE 9 DAILY. Max Daily Amount: 300 mg. benzonatate TAKE ONE 30 Cap Active (TESSALON PERLES) CAPSULE BY 9 100 MG Oral MOUTH THREE CapIndications: TIMES A DAY Cough NEEDED FOR COUGH Multiple Vitamin Take 1 Tab by 100 Tab Active (DAILY JEANETTE) Oral mouth DAILY. 9 Tab ACETAMINOPHEN EXTRA TAKE ONE 120 Tab Active STRENGTH 500 MG Oral TABLET BY 9 Tab MOUTH EVERY 6 HOURS NEEDED FOR PAIN gabapentin Take 1 Cap by 60 Cap Active (NEURONTIN) 300 MG mouth TWICE 9 Oral Cap DAILY. cyclobenzaprine TAKE ONE 90 Tab 5 Active (FLEXERIL) 10 MG TABLET BY 9 Oral TabIndications: MOUTH THREE Chronic low back TIMES A DAY pain with left-sided NEEDED FOR sciatica, MUSCLE SPASMS unspecified back pain laterality trazodone (DESYREL) Take 1 Tab by 90 Tab 3 Active 150 MG Oral Tab mouth EVERY 9 BEDTIME NEEDED (sleep). metFORMIN HCL 1000 TAKE ONE 60 Tab 5 Active MG Oral TABLET BY 9 TabIndications: MOUTH TWICE A Diabetes mellitus DAY WITH MEALS without complication (HCC) glipiZIDE (GLUCOTROL TAKE ONE 180 Tab 1 Active XL) 5 MG Oral TABLET TABLET BY 9 SR 24 HR MOUTH TWICE A DAY naproxen (NAPROSYN) TAKE ONE 60 Tab 5 Active 500 MG Oral TABLET BY 9 TabIndications: MOUTH TWICE A Chronic low back DAY NEEDED pain with left-sided FOR PAIN sciatica, unspecified back pain laterality fluticasone-salmeter INHALE ONE 120 Each Active ol diskus (ADVAIR) PUFF BY MOUTH 9 250-50 MCG/DOSE TWICE A DAY Inhalation AEROSOL POWDER, BREATH ACTIVATED loratadine TAKE ONE 30 Tab 5 Active (CLARITIN,ALAVERT) TABLET BY 9 10 MG Oral Tab MOUTH EVERY DAY SM TUSSIN DM 100-10 TAKE 10MLS BY 560 mL 1 Active MG/5ML Oral Syrup MOUTH EVERY 4 9 HOURS NEEDED FOR COUGH MAXIMUM DAILY DOSE = 60MLS diphenhydrAMINE Take 1-2 Caps 60 Cap 3 Active (BENADRYL) 25 MG by mouth EVERY 9 Oral Cap SIX HOURS NEEDED (allergies). albuterol HFA Take 2 Puffs 18 g Active (VENTOLIN) 108 (90 by inhalation 9 Base) MCG/ACT EVERY FOUR Inhalation Aero Soln HOURS NEEDED (asthma). Alcohol Swabs 1 PKT by Does 100 Each Active (ALCOHOL PREP) 70 % not apply 9 Does not apply Pads route TWICE DAILY. DX: E11.9, Test bid Insulin Glargine Inject 38 15 Device 3 Active (BASAGLAR KWIKPEN) Units beneath 9 100 UNIT/ML the skin EVERY Subcutaneous BEDTIME. Solution Pen-injector nystatin APPLY TO 30 g 1 Active (MYCOSTATIN) 070139 AFFECTED 9 UNIT/GM Apply AREA(S) UNDER externally BREAST TWO CreamIndications: TIMES A DAY Candidal intertrigo atorvastatin TAKE ONE 30 Tab 5 Active (LIPITOR) 20 MG Oral TABLET BY 9 TabIndications: MOUTH EVERY Mixed hyperlipidemia DAY escitalopram TAKE ONE 30 Tab 5 Active (LEXAPRO) 20 MG Oral TABLET BY 9 TabIndications: MOUTH EVERY Depression with DAY anxiety tolterodine (DETROL TAKE ONE 90 Cap 1 Active LA) 4 MG Oral CAPSULE BY 9 CAPSULE SR 24 HR MOUTH EVERY DAY Triamcinolone APPLY TO 80 g 2 Active Acetonide AFFECTED 9 (TRIAMCINOLONE AREA(S) ON TOPICAL OINT 0.025 % ARMS TWO TIMES 80 G ) 0.025 % Apply A DAY externally Ointment NEEDED LORazepam (ATIVAN) Take 1 Tab by 60 Tab 0 Active 0.5 MG Oral mouth TWO 9 TabIndications: TIMES DAILY Depression with NEEDED (sleep anxiety and anxiety). Max Daily Amount: 2 Tabs. tramadol (ULTRAM) 50 Take 1 Tab by 120 Tab 3 Active MG Oral mouth EVERY 9 TabIndications: SIX HOURS Chronic low back NEEDED (pain). pain with left-sided Max Daily sciatica, Amount: 200 unspecified back mg. pain laterality tramadol (ULTRAM) 50 Take 1 Tab by 120 Tab 3 12/29/19 Discontinued MG Oral Tab mouth EVERY 12 28 (Reorder) SIX HOURS NEEDED (pain). Max Daily Amount: 200 mg. LORazepam (ATIVAN) Take 1 Tab by 60 Tab 0 12/29/19 Discontinued 0.5 MG Oral mouth TWO 12 28 (Reorder) TabIndications: TIMES DAILY Depression with NEEDED (sleep anxiety and anxiety). Max Daily Amount: 2 Tabs. amoxicillin-clavulan Take 1 Tab by 14 Tab 0 12/29/19 Discontinued ic acid (AUGMENTIN mouth TWICE 12 28 875 MG) 875-125 MG DAILY. 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 Using e cig as of 11/22. Essential hypertension, benign 06/26/2010 Depression with anxiety 06/26/2010 Mixed hyperlipidemia 06/26/2010 Seasonal allergic rhinitis 06/26/2010 Diabetic neuropathy 06/26/2010 documented as of this encounter (statuses as of 12/28/2018) Resolved Problems Problem Noted Date Resolved Date Shoulder pain, left 09/06/2012 11/27/2013 Impingement syndrome of left shoulder 09/06/2012 11/27/2013 Unspecified asthma(493.90) 07/03/2010 10/05/2010 documented as of this encounter (statuses as of 12/28/2018) Immunizations Name Administration Dates Next Due Depo Medrol (80mg) 09/16/2011 Influenza (IM) Preservative Free 12/28/2018, 01/10/2018, 12/27/2016, 01/27/2016, 12/17/2014, 02/12/2013, 01/20/2012 documented as of this encounter Social History Tobacco Use Types Packs/Day Years Used Date Current Every Day Smoker Cigarettes 0.25 33 Smokeless Tobacco: Never Used Comments: down to 4 cigarettes a day now Alcohol Use Drinks/Week oz/Week Comments No 0 Standard drinks or equivalent 0.0 Sex Assigned at Date Recorded Not on file Job Start Date Occupation Industry Not on file Not on file Not on file Travel History Travel Start Travel End No recent travel history available. documented as of this encounter Last Filed Vital Signs Vital Sign Reading Time Taken Comments Blood Pressure 99/60 12/28/2018 7:37 AM EDT Pulse 90 12/28/2018 7:37 AM EDT Temperature - - Respiratory Rate - - Oxygen Saturation 91% 12/28/2018 7:37 AM EDT Inhaled Oxygen Concentration - - Weight 101.6 kg (224 lb) 12/28/2018 7:37 AM EDT Height 167.6 cm (5' 6") 12/28/2018 7:37 AM EDT Body Mass Index 36.15 12/28/2018 7:37 AM EDT documented in this encounter Patient Instructions Patient InstructionsMagalys Massey FNP - 12/28/2018 8:00 AM EDTLab work today Flu shot today Keep follow with Lydia Follow up Magalsy in one month Prescriptions sent to your pharmacy. documented in this encounter Progress Notes Magalys Massey FNP - 12/28/2018 8:00 AM EDT PATIENT: SUZY Spears : 1965 DATE OF SERVICE: 12/28/2018 Chief Complaint Patient presents with Medication Refill SUBJECTIVE: SUZY Spears is a 53-y.o. female who is here for refills of controlled pain and anxiety meds. She denies abuse or diversion. She is due for lab work for diabetes. She will be seeing Lydia next month. Her home fingersticksare fairly good and fasting in low and mid 100's. Patient denies foot pain or swelling, foot lesions, numbness, burning, injuries or infections. 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 Using e cig as of 11/22. Essential hypertension, benign 06/26/2010 Depression with anxiety 06/26/2010 Mixed hyperlipidemia 06/26/2010 Seasonal allergic rhinitis 06/26/2010 Diabetic neuropathy (HCC) 06/26/2010 Current Outpatient Medications Medication Sig ACCU-CHEK FASTCLIX LANCETS Does not apply Misc 1 Each by In Vitro route TWICE DAILY. ACETAMINOPHEN EXTRA STRENGTH 500 MG Oral Tab TAKE ONE TABLET BY MOUTH EVERY 6 HOURS NEEDEDFOR PAIN albuterol (PROVENTIL, VENTOLIN) (2.5 MG/3ML) 0.083% Inhalation Nebu Soln 3 mL by Inhalation-SVN route EVERY FOUR HOURS NEEDED (asthma). albuterol HFA (VENTOLIN) 108 (90 Base) MCG/ACT Inhalation Aero Soln Take 2 Puffs by inhalation EVERY FOUR HOURS NEEDED (asthma). Alcohol Swabs (ALCOHOL PREP) 70 % Does not apply Pads 1 PKT by Does not apply route TWICE DAILY. DX: E11.9, Test bid atorvastatin (LIPITOR) 20 MG Oral Tab TAKE ONE TABLET BY MOUTH EVERY DAY benzonatate (TESSALON PERLES) 100 MG Oral Cap TAKE ONE CAPSULE BY MOUTH THREE TIMES A DAY NEEDED FOR COUGH cyclobenzaprine (FLEXERIL) 10 MG Oral Tab TAKE ONE TABLET BY MOUTH THREE TIMES A DAY NEEDED FOR MUSCLE SPASMS diphenhydrAMINE (BENADRYL) 25 MG Oral Cap Take 1-2 Caps by mouth EVERY SIX HOURS NEEDED (allergies). EPINEPHrine 0.3 MG/0.3ML Injection Solution Auto-injector 1 Dose by Injection route DIRECTED. Use if needed for bee allergy escitalopram (LEXAPRO) 20 MG Oral Tab TAKE ONE TABLET BY MOUTH EVERY DAY fluticasone (FLONASE) 50 MCG/ACT Nasal Suspension INHALE TWO SPRAYS IN EACH NOSTRIL EVERY DAY fluticasone-salmeterol diskus (ADVAIR) 250-50 MCG/DOSE Inhalation AEROSOL POWDER, BREATH ACTIVATED INHALE ONE PUFF BY MOUTH TWICE A DAY gabapentin (NEURONTIN) 300 MG Oral Cap Take 1 Cap by mouth TWICE DAILY. glipiZIDE (GLUCOTROL XL) 5 MG Oral TABLET SR 24 HR TAKE ONE TABLET BY MOUTH TWICE A DAY Glucose Blood (FREESTYLE LITE) In Vitro Strip 1 Strip by In Vitro route TWICE DAILY. Insulin Glargine (BASAGLAR KWIKPEN) 100 UNIT/ML Subcutaneous Solution Pen -injector Inject 38 Units beneath the skin EVERY BEDTIME. Insulin Pen Needle (PENTIPS) 31G X 8 MM Does not apply Misc 1 Device by Does not apply route DAILY. E11.9 Lancets Does not apply Misc 1 Device by In Vitro route TWICE DAILY. Insulin dependent Brand: insur preferred loratadine (CLARITIN,ALAVERT) 10 MG Oral Tab TAKE ONE TABLET BY MOUTH EVERY DAY LORazepam (ATIVAN) 0.5 MG Oral Tab Take 1 Tab by mouth TWO TIMES DAILY NEEDED (sleep and anxiety). Max Daily Amount: 2 Tabs. metFORMIN HCL 1000 MG Oral Tab TAKE ONE TABLET BY MOUTH TWICE A DAY WITH MEALS MINTOX 200-200-20 MG/5ML Oral Suspension TAKE 15ML BY MOUTH EVERY 4 HOURS NEEDED FOR GAS AND ABDOMINAL PAIN montelukast (SINGULAIR) 10 MG Oral Tab Take 1 Tab by mouth DAILY. Multiple Vitamin (DAILY JEANETTE) Oral Tab Take 1 Tab by mouth DAILY. mupirocin (BACTROBAN) 2 % Apply externally Ointment Apply small amount twice daily to affected area naproxen (NAPROSYN) 500 MG Oral Tab TAKE ONE TABLET BY MOUTH TWICE A DAY NEEDED FOR PAIN nystatin (MYCOSTATIN) 452980 UNIT/GM Apply externally Cream APPLY TO AFFECTED AREA(S) UNDER BREAST TWO TIMES A DAY Omeprazole delayed rel cap 20 MG Oral CAPSULE DELAYED RELEASE TAKE ONE CAPSULE BY MOUTH TWICEA DAY ondansetron (ZOFRAN ODT) 4 MG Oral TABLET DISPERSIBLE Take 1 Tab by mouth THREE TIMES DAILY NEEDED (nausea). Pregabalin (LYRICA) 150 MG Oral Cap Take 1 Cap by mouth TWICE DAILY. Max Daily Amount: 300 mg. SM TUSSIN DM 100-10 MG/5ML Oral Syrup TAKE 10MLS BY MOUTH EVERY 4 HOURS NEEDED FOR COUGH MAXIMUM DAILY DOSE = 60MLS tolterodine (DETROL LA) 4 MG Oral CAPSULE SR 24 HR TAKE ONE CAPSULE BY MOUTH EVERY DAY tramadol (ULTRAM) 50 MG Oral Tab Take 1 Tab by mouth EVERY SIX HOURS NEEDED (pain). Max Daily Amount: 200 mg. trazodone (DESYREL) 150 MG Oral Tab Take 1 Tab by mouth EVERY BEDTIME NEEDED (sleep). Triamcinolone Acetonide (TRIAMCINOLONE TOPICAL OINT 0.025 % 80 G ) 0.025 % Apply externally Ointment APPLY TO AFFECTED AREA(S) ON ARMS TWO TIMES A DAY NEEDED No current facility-administered medications for this visit. OBJECTIVE: BP 99/60 (BP Location: Right arm, Patient Position: Sitting) | Pulse 90 | Ht 5' 6" (1.676 m) | Wt 224 lb (101.6 kg) | SpO2 91% | BMI 36.15 kg/m She is alert and in no distress.Chest is clear, no wheezing or rales. Normal symmetric air entry throughout both lung oliver. Heart RRR. Lab Results Component Value Date GLYCO 7.7 (H) 10/17/2018 GLYCO 8.2 (H) 05/19/2018 GLYCO 7.7 (H) 02/07/2018 Lab Results Component Value Date CHOL 119 10/17/2018 TRIG 91 10/17/2018 HDL 31 (L) 10/17/2018 LDL 70 10/17/2018 LDLHDLRATIO 2.3 10/17/2018 CHOLHDLRATIO 3.8 10/17/2018 ASSESSMENT: ICD-9-CM ICD-10-CM 1. Depression with anxiety 300.4 F41.8 LORazepam (ATIVAN) 0.5 MG Oral Tab 2. Diabetes mellitus without complication (HCC) 250.00 E11.9 LIPID PROFILE GLYCOHEMOGLOBIN A1C COMPREHENSIVE METABOLIC PANEL 3. Chronic low back pain with left-sided sciatica, unspecified back pain laterality 724.2 M54.42 tramadol (ULTRAM) 50 MG Oral Tab 724.3 G89.29 338.29 Patient Instructions Lab work today Flu shot today Keep follow with Lydia Follow up Magalys in one month Prescriptions sent to your pharmacy. Author: DEVEN Moore 12/28/2018 08:13 documented in this encounter Plan of Treatment Date Type Specialty Care Team Description 12/28/2018 Lab Internal Medicine Mixed hyperlipidemia; Essential hypertension, benign; Diabetes mellitus without complication (HCC) 01/25/2019 Office Visit Family Practice Magalys Massey FNP [address] [place] [address] [phone] 02/01/2019 Office Visit Endocrinology Lydia Jay FNP [address] [place] [address] Health Maintenance Due Date Last Done Comments PNEUMOCOCCAL 0-64 YRS (1 of 1971 1 - PPSV23) ZOSTER IMMUNIZATION SERIES 2015 (1 of 2) INFLUENZA VACCINE (#1) 2018 01/10/2018, 12/27/2016, 01/27/2016, Additional history exists HEMOGLOBIN A1C 01/17/2019 10/17/2018, 05/19/2018, 02/07/2018, Additional history exists DEPRESSION SCREENING 04/17/2019 04/17/2018 FOOT EXAM 08/04/2019 08/03/2018, 08/03/2018, 08/03/2018, Additional history exists URINE MICROALBUMIN 10/18/2019 10/17/2018, 09/29/2017, 03/02/2016, Additional history exists MAMMOGRAM (SCREENING) 11/28/2019 11/27/2018, 05/03/2017, 03/26/2016, Additional history exists LIPID DISORDER SCREENING 12/07/2019 12/06/2018, 10/17/2018, 05/19/2018, Additional history exists Diabetic Eye Exam 07/19/2020 07/19/2018, 05/06/2017 COLONOSCOPY SCREENING 03/30/2027 03/30/2017, 03/30/2017 HPV IMMUNIZATION SERIES Aged Out No longer eligible based on patient's age to complete this topic MENINGOCOCCAL VACCINE IMM Aged Out No longer eligible based on patient's age to complete this topic documented as of this encounter Goals Goal Patient Goal Associated Recent Patient-Stated? Author Type Problems Progress Blood Pressure Blood Pressure 99/60 No Bryson, < 140/90 (12/28/2018 DEVEN Dowell 7:37 AM EDT) Note: This is an individualized treatment (blood pressure) goal for Cathleen Stephanie Regan: Displayed above (on the left) is your goal for blood pressure control. Your most recent blood pressure is also shown above, on the right. You should try to achieve blood pressures that are lower than your goal listed above (on the left). Depression screen (PHQ-9) total score < 5 Depression No Magalys Massey FNP Note: This is an individualized treatment (depression) goal for BELIACathrynSTACY Spears: Displayed above is your goal for a depression screening (PHQ-9) score that would indicate good control of your depression. Diabetes < 7.0 Diabetes 7.7 (10/17/2018 8:02 AM EDT) Trevon Espinoza MD Note: Diabetes Care Plan According to current 2014 ADA guidelines the patient A1C goal is less than 7. The patient's last A1C was Lab Results Lab Results Value Date/Time GLYCO 7.4 10/10/2013 1039 GLYCO 9.0 06/20/2013 1016 GLYCO 7.8% 09/20/2012 1347 The patient is:above goal . As your provider, it is important that I advise you regarding: your current medications and help you with any challenges you may face taking your medications as directed (ex. instructions, cost, side effects, and interactions). lifestyle changes:exercise your clinical goals and how you can achieve success:weight reduction, exercise plan and glucose monitoring medication management: no change patient education/self-management tools provided: No To successfully manage my Diabetes I will: have lab work every six months if my previous A1c was 7 or less. If my results were greater than 7, I will have lab work every three months. My goal is to control my diabetes by keeping A1c below 7.0 take medications every day as prescribed by my healthcare provider and if unable to take them I will discuss with my provider. exercise/walk 45 minutes 7 day(s) per week. If I experience chest pain, chest tightness, or shortness of breath, I will seek medical attention immediately. check feet daily. If sores or irritation are noticed, will seek medical attention. follow a low carbohydrate and low fat diet. My goal is an LDL (bad cholesterol) number less than 100 when I have my routine lab work. check blood sugar as instructed and will call my healthcare provider if the results are consistently below 70 or above 300. I will monitor for symptoms of low blood sugar (feeling faint, dizzy, lig htheaded, jittery, sweaty, or hungry), if symptoms are noticed, I will eat or drink something (glucose tabs, orange juice, candy) to help raise sugar. record my blood sugar results. [employer] is safe and secure way for you to do this in your medical record online. try to obtain an ideal body weight. My recent weight was . My weight loss goal for my next office visit is 200 pounds . to prevent kidney problems common to people with diabetes I will complete a yearly Microalbumin to check for protein in urine. I will talk with my healthcare provider about medications to prevent diabetic renal disease. to prevent diabetic retinopathy I will see an eye doctor yearly. A yearly dilated eye exam helps prevent blindness. if currently smoking, will discuss how to quit smoking with my healthcare provider and work towards quitting. Education Resources: [place] Diabetic Association Site http://diabetes.org Academy of Nutrition & Dietetics Site http://eatright.org National Smoking Cessation Site http://smokefree.gov Glycohemoglobin A1c < 7.0 Diabetes 7.7 (10/17/2018 8:02 No Magalys Massey FNP AM EDT) Note: This is an individualized treatment (diabetes control, HgbA1C) goal for Cathleen Spears: Displayed above is your progress towards your HgbA1C goal. Your goal is shown above (on the left); your most recent HgbA1C is shown on the right. Note that lower numbers are better. Weight loss vs. 18 mo Lifestyle 16 (12/28/2018 7:37 AM No Magalys Massey FNP max (lbs) >= 10 EDT) Note: This is an individualized lifestyle goal for Cathleen Spears: Your body mass index (BMI) is more than 30. You should lose weight. A reasonable starting goal is to lose 10 pounds. Displayed above is how many pounds you have lost thus far towards your 10 pound weight loss goal. Keep immunizations current Lifestyle No Magalys Massey FNP Note: This is an individualized lifestyle goal for Cathleen Spears: Please be sure to keep up-to-date on recommended immunizations. For example, this would include a yearly influenza vaccine. Immunization status can be seen by looking at the Health Maintenance sections of your [employer], Plan of Care, and any After Visit Summaries. Keep a regular sleep schedule Lifestyle No Magalys Massey FNP Note: This is an individualized lifestyle goal for SUZY Spears: Please maintain a regular sleep schedule. This may help with some symptoms of depression. Take all prescribed medications as Self-management No Magalys Massey FNP directed Note: This is an individualized self-management goal for Cathleen Spears: Please take all prescribed medications as directed. 1. Do not skip doses. If you cannot afford your medications, talk with your doctor. 2. Use a pill reminder system such as a pill box if needed. Your pharmacist can help you with this. 3. Contact your Pharmacy 5 days before your medication runs out. If you cannot take your medications for any reasons, talk with your doctor. 4. Please bring all of your medication bottles and inhalers (or a list of all your medications/inhalers) with you to every visit. Potential barriers to meeting all of your care plan goals will continue to be addressed on an ongoing basis. documented as of this encounter Results Not on filedocumented in this encounter Visit Diagnoses Diagnosis Depression with anxiety - Primary Dysthymic disorder Diabetes mellitus without complication (HCC) Type II or unspecified type diabetes mellitus without mention of complication, not stated as uncontrolled Chronic low back pain with left-sided sciatica, unspecified back pain laterality documented in this encounter Guarantor Name Account Type Relation to Date of Phone Billing Patient Address SUZY Spears Personal/Family 1965 [address] (Home) [place], [place] [phone] (Work) documented as of this encounter Advance Directives Code Status Date Activated Date Inactivated Comments Full Code 10/07/2016 11:25 AM 10/07/2016 2:45 PM Does patient have decision making capacity? Yes
--- OUTSIDE RECORDS SUMMARY | 2019-02-10 16:18 | XMS REPORT | Summary of Care ---
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 Ra Ibuprofen Swelling 07/07/2010 documented as of this encounter (statuses as of 12/13/2018) Medications Medication Sig Dispensed Refills Start Date End Date Status albuterol (PROVENTIL, 3 mL by 360 mg 3 12/22/2015 Active VENTOLIN) (2.5 MG/3ML) Inhalation-SVN 0.083% Inhalation Nebu route EVERY FOUR SolnIndications: Asthma HOURS NEEDED in adult, mild (asthma). intermittent, uncomplicated fluticasone (FLONASE) INHALE TWO SPRAYS 16 g 5 05/17/2016 Active 50 MCG/ACT Nasal IN EACH NOSTRIL Suspension EVERY DAY Insulin Pen Needle 1 Device by Does 100 Each 5 04/26/2017 Active (PENTIPS) 31G X 8 MM not apply route Does not apply Misc DAILY. E11.9 mupirocin (BACTROBAN) 2 Apply small 15 g 0 06/08/2017 Active % Apply externally amount twice Ointment daily to affected area EPINEPHrine 0.3 1 Dose by 1 Each 2 09/06/2017 Active MG/0.3ML Injection Injection route Solution Auto-injector DIRECTED. Use if needed for bee allergy ACCU-CHEK FASTCLIX 1 Each by In 102 Each 3 09/19/2017 Active LANCETS Does not apply Vitro route TWICE Misc DAILY. MINTOX 200-200-20 TAKE 15ML BY 840 mL 3 09/29/2017 Active MG/5ML Oral MOUTH EVERY 4 SuspensionIndications: HOURS NEEDED Flatulence, eructation FOR GAS AND and gas pain ABDOMINAL PAIN ondansetron (ZOFRAN Take 1 Tab by 30 Tab 5 09/29/2017 Active ODT) 4 MG Oral TABLET mouth THREE TIMES DISPERSIBLE DAILY NEEDED (nausea). Glucose Blood 1 Strip by In 100 Strip 5 12/16/2017 Active (FREESTYLE LITE) In Vitro route TWICE Vitro Strip DAILY. Lancets Does not apply 1 Device by In 100 Each 5 12/20/2017 Active Misc Vitro route TWICE DAILY. Insulin dependent Brand: insur preferred Omeprazole delayed rel TAKE ONE CAPSULE 60 Cap 5 06/06/2018 Active cap 20 MG Oral CAPSULE BY MOUTH TWICE A DELAYED DAY RELEASEIndications: Non-intractable vomiting with nausea, unspecified vomiting type montelukast (SINGULAIR) Take 1 Tab by 90 Tab 3 06/12/2018 Active 10 MG Oral Tab mouth DAILY. Pregabalin (LYRICA) 150 Take 1 Cap by 60 Cap 5 06/20/2018 Active MG Oral Cap mouth TWICE DAILY. Max Daily Amount: 300 mg. tolterodine (DETROL LA) TAKE ONE CAPSULE 90 Cap 1 07/03/2018 Active 4 MG Oral CAPSULE SR 24 BY MOUTH EVERY HR DAY benzonatate (TESSALON TAKE ONE CAPSULE 30 Cap 5 07/24/2018 Active PERLES) 100 MG Oral BY MOUTH THREE CapIndications: Cough TIMES A DAY NEEDED FOR COUGH Multiple Vitamin (DAILY Take 1 Tab by 100 Tab 5 08/22/2018 Active JEANETTE) Oral Tab mouth DAILY. ACETAMINOPHEN EXTRA TAKE ONE TABLET 120 Tab 5 09/05/2018 Active STRENGTH 500 MG Oral BY MOUTH EVERY 6 Tab HOURS NEEDED FOR PAIN gabapentin (NEURONTIN) Take 1 Cap by 60 Cap 5 09/12/2018 Active 300 MG Oral Cap mouth TWICE DAILY. tramadol (ULTRAM) 50 MG Take 1 Tab by 120 Tab 3 09/18/2018 Active Oral Tab mouth EVERY SIX HOURS NEEDED (pain). Max Daily Amount: 200 mg. cyclobenzaprine TAKE ONE TABLET 90 Tab 5 09/18/2018 Active (FLEXERIL) 10 MG Oral BY MOUTH THREE TabIndications: Chronic TIMES A DAY low back pain with NEEDED FOR MUSCLE left-sided sciatica, SPASMS unspecified back pain laterality trazodone (DESYREL) 150 Take 1 Tab by 90 Tab 3 09/20/2018 Active MG Oral Tab mouth EVERY BEDTIME NEEDED (sleep). metFORMIN HCL 1000 MG TAKE ONE TABLET 60 Tab 5 09/20/2018 Active Oral TabIndications: BY MOUTH TWICE A Diabetes mellitus DAY WITH MEALS without complication (HCC) glipiZIDE (GLUCOTROL TAKE ONE TABLET 180 Tab 1 10/05/2018 Active XL) 5 MG Oral TABLET SR BY MOUTH TWICE A 24 HR DAY Triamcinolone Acetonide APPLY TO AFFECTED 80 g 2 10/10/2018 Active (TRIAMCINOLONE TOPICAL AREA(S) ON ARMS OINT 0.025 % 80 G ) TWO TIMES A DAY 0.025 % Apply NEEDED externally Ointment naproxen (NAPROSYN) 500 TAKE ONE TABLET 60 Tab 5 10/10/2018 Active MG Oral TabIndications: BY MOUTH TWICE A Chronic low back pain DAY NEEDED FOR with left-sided PAIN sciatica, unspecified back pain laterality fluticasone-salmeterol INHALE ONE PUFF 120 Each 5 10/18/2018 Active diskus (ADVAIR) 250-50 BY MOUTH TWICE A MCG/DOSE Inhalation DAY AEROSOL POWDER, BREATH ACTIVATED loratadine TAKE ONE TABLET 30 Tab 5 10/24/2018 Active (CLARITIN,ALAVERT) 10 BY MOUTH EVERY MG Oral Tab DAY SM TUSSIN DM 100-10 TAKE 10MLS BY 560 mL 1 11/03/2018 Active MG/5ML Oral Syrup MOUTH EVERY 4 HOURS NEEDED FOR COUGH MAXIMUM DAILY DOSE = 60MLS diphenhydrAMINE Take 1-2 Caps by 60 Cap 3 11/03/2018 Active (BENADRYL) 25 MG Oral mouth EVERY SIX Cap HOURS NEEDED (allergies). albuterol HFA Take 2 Puffs by 18 g 5 11/23/2018 Active (VENTOLIN) 108 (90 inhalation EVERY Base) MCG/ACT FOUR HOURS Inhalation Aero Soln NEEDED (asthma). Alcohol Swabs (ALCOHOL 1 PKT by Does not 100 Each 5 11/23/2018 Active PREP) 70 % Does not apply route TWICE apply Pads DAILY. DX: E11.9, Test bid Insulin Glargine Inject 38 Units 15 Device 3 11/27/2018 Active (BASAGLAR KWIKPEN) 100 beneath the skin UNIT/ML Subcutaneous EVERY BEDTIME. Solution Pen-injector LORazepam (ATIVAN) 0.5 Take 1 Tab by 60 Tab 0 11/27/2018 Active MG Oral TabIndications: mouth TWO TIMES Depression with anxiety DAILY NEEDED (sleep and anxiety). Max Daily Amount: 2 Tabs. nystatin (MYCOSTATIN) APPLY TO AFFECTED 30 g 1 12/04/2018 Active 687999 UNIT/GM Apply AREA(S) UNDER externally BREAST TWO TIMES CreamIndications: A DAY Candidal intertrigo atorvastatin (LIPITOR) TAKE ONE TABLET 30 Tab 5 12/06/2018 Active 20 MG Oral BY MOUTH EVERY TabIndications: Mixed DAY hyperlipidemia amoxicillin-clavulanic Take 1 Tab by 14 Tab 0 12/08/2018 Active acid (AUGMENTIN 875 MG) mouth TWICE 875-125 MG Oral Tab DAILY. escitalopram (LEXAPRO) TAKE ONE TABLET 30 Tab 5 12/12/2018 Active 20 MG Oral BY MOUTH EVERY TabIndications: DAY Depression with anxiety documented as of this encounter (statuses as of 12/13/2018) Active Problems Problem Noted Date Pneumonia of [...] as of this encounter (statuses as of 12/13/2018) Resolved Problems Problem Noted Date Resolved Date Shoulder pain, left 09/06/2012 11/27/2013 Impingement syndrome of left shoulder 09/06/2012 11/27/2013 Unspecified asthma(493.90) 07/03/2010 10/05/2010 documented as of this encounter (statuses as of 12/13/2018) Immunizations Name Administration Dates Next Due Depo Medrol (80mg) 09/16/2011 Influenza (IM) Preservative Free 01/10/2018, 12/27/2016, 01/27/2016, 12/17/2014, 02/12/2013, 01/20/2012 documented [...] of this encounter Last Filed Vital Signs Not on filedocumented in this encounter Progress Notes Marie Munoz, PT - 12/13/2018 8:00 AM EDT [facility] Treatment Note Outpatient Physical Therapy [facility] PHYSICAL THERAPY [address] [place] [phone] Treatment Number: 2 Referring Physician: Trevon Ha Primary Diagnosis: ICD-9-CM ICD-10-CM 1. Right lateral epicondylitis 726.32 M77.11 Time In: 0800 Time Out: 0825 Total Session Minutes: 25 Pain at Start of Care: 0/10 Pain at End of Care: 0/10 Subjective Comments: Elbow has felt a lot better since starting stretching and icing. Only pain gilberts had was when she hit the elbow on the door. Interventions: Therapeutic Exercises (22412) Number of Exercises?: 3 Total Minutes (all Therapeutic Exercise): 8 Exercise #1 Exercise Name: Wrist flexion/extension stretch Reason for Exercise: Flexibility Location/Body Area: Elbow Sets/Reps: 3x30 seconds Manual Therapy (17728) Soft Tissue Mobilization: Manual Tissue Mobilization Soft Tissue Mobilization Details: STM and friction massage to extensor tendons Other Manual Therapy Treatment Performed: ice massage Total Minutes (All Manual Therapy): 12 Modalities Modalities Needed?: Ultrasound Ultrasound (34131) Reason for Use: inflammation Body Area: right elbow Frequency: 1.0 MHz Frequency Description: Pulsed 50% Intensity: 1 Total Minutes: 5 minutes Assessment: Patient demonstrates improved tissue length with good recall of HEP. Patient also reports ongoing difficulty in repetitive lifting. 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 Plan for Next Visit: Continue per POC. Add strengthening if tolerated. Total UNTIMED Code Treatment Minutes: Total TIMED Code Treatment Minutes: 25 Total Treatment Minutes: 25 Author: Marie Munoz PT 12/13/2018 08:28 documented in this encounter Plan of Treatment Date Type Specialty Care Team Description 12/19/2018 Office Visit Physical Therapy Marie Munoz, PT [address] [address] [place] [address] [phone] 12/27/2018 Office Visit Physical Therapy Marie Munoz, PT [address] [place] [address] [place] [address] [phone] 12/28/2018 Office Visit Family Practice Magalys Massey, DEVEN [address] [place] [address] [phone] 12/28/2018 Lab Internal Medicine 01/03/2019 Office Visit Physical Marie Goldberg, PT [address] [place] [address] [place] [address] [phone] 02/01/2019 Office Visit Endocrinology Lydia Jay, DEVEN [address] [place] [address] Health Maintenance Due Date Last Done [...] Type Problems Progress Blood Pressure Blood Pressure 126/74 No Bryson, < 140/90 (12/08/2018 DEVEN Dowell 11:18 AM EDT) Note: This is an individualized treatment (blood pressure) goal for Cathleen Spears: Displayed above (on the left) is your goal for blood pressure control. Your most recent blood pressure is also shown above, on the right. You should try to achieve blood pressures that are lower than your goal listed above (on the left). Depression screen (PHQ-9) total score < 5 Depression No Magalys Massey FNP Note: This is an individualized treatment (depression) goal for SUZY Spears: Displayed above is your goal for a depression screening (PHQ-9) score that would indicate good control of your depression. Diabetes < 7.0 Diabetes 7.7 (10/17/2018 8:02 AM EDT) No Trevon Ha MD Note: Diabetes Care Plan According to [...] raise sugar. record my blood sugar results. [employer] is safe and secure way for you [...] provider and work towards quitting. Education Resources: [place] Diabetic Association Site http://diabetes.org Academy of Nutrition [...] better. Weight loss vs. 18 mo Lifestyle 26.2 (12/08/2018 11:18 AM No Magalys Massey FNP max (lbs) [...] a regular sleep schedule Lifestyle No Magalys Massye FNP Note: This is an individualized lifestyle [...] filedocumented in this encounter Visit Diagnoses Diagnosis Right lateral epicondylitis - Primary Lateral epicondylitis of elbow documented in this encounter Guarantor Name Account Type Relation to Date of Phone Billing Patient Address SUZY Spears Personal/Family 1965 [address] (Home) [place], [place] [phone] (Work) documented as of this encounter Advance Directives Code Status Date Activated Date Inactivated Comments Full Code 10/07/2016 11:25 AM 10/07/2016 2:45 PM Does patient have decision making capacity? Yes
--- OUTSIDE RECORDS SUMMARY | 2019-02-10 16:18 | XMS REPORT | Summary of Care ---
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 Ra Ibuprofen Swelling 07/07/2010 documented as of this encounter (statuses as of 12/19/2018) Medications Medication Sig Dispensed Refills Start Date [...] TO AFFECTED 30 g 1 12/04/2018 Active 299465 UNIT/GM Apply AREA(S) UNDER externally BREAST TWO [...] as of this encounter (statuses as of 12/19/2018) Active Problems Problem Noted Date Pneumonia of [...] as of this encounter (statuses as of 12/19/2018) Resolved Problems Problem Noted Date Resolved Date Shoulder pain, left 09/06/2012 11/27/2013 Impingement syndrome of left shoulder 09/06/2012 11/27/2013 Unspecified asthma(493.90) 07/03/2010 10/05/2010 documented as of this encounter (statuses as of 12/19/2018) Immunizations Name Administration Dates Next Due Depo [...] encounter Progress Notes Marie Munoz, PT - 12/19/2018 9:30 AM EDT [facility] Treatment Note Outpatient Physical Therapy [facility] [place] [facility] [address] [place] [phone] Treatment Number: 3 Referring Physician: Trevon Ha Primary Diagnosis: ICD-9-CM ICD-10-CM 1. Right lateral epicondylitis 726.32 M77.11 Time In: 924 Time Out: 947 Total Session Minutes: 23 Pain at Start of Care: 0/10 Pain at End of Care: 0/10 Subjective Comments: Denies pain. Is tolerating lifting groceries, her purse, and doing all ADL's. Interventions: Therapeutic Exercises (82281) Number of Exercises?: 3 Total Minutes (all Therapeutic Exercise): 10 Exercise #1 Exercise Name: Wrist flexion/extension stretch Reason for Exercise: Flexibility Location/Body Area: Elbow Sets/Reps: 3x30 seconds Manual Therapy (59835) Soft Tissue Mobilization: Manual Tissue Mobilization Soft Tissue Mobilization Details: STM and friction massage to extensor tendons Other Manual Therapy Treatment Performed: ice massage Total Minutes (All Manual Therapy): 8 Ultrasound (51952) Reason for Use: inflammation Body Area: right elbow Frequency: 1.0 MHz Frequency Description: Pulsed 50% Intensity: 1 Total Minutes: 5 minutes Assessment: Patient demonstrates good recall of HEP. Negative cozens test with full wrist and elbowROM. Symptoms appear resolved. Is going to trial HEP and follow up if any decline in status. Plan for Next Visit: Follow up in 3-4 weeks, sooner if decline. Total UNTIMED Code Treatment Minutes: Total TIMED Code Treatment Minutes: 23 Total Treatment Minutes: 23 Author: Marie Munoz, PT 12/19/2018 09:45 documented in this encounter Plan of Treatment Date Type Specialty Care Team Description 12/28/2018 Office Visit Family Practice Magalys Massey, DEVEN [address] [place] [address] [phone] 12/28/2018 Lab Internal Medicine 02/01/2019 Office Visit Endocrinology Lydia Jay FNP [address] [place] [address] Health Maintenance Due Date Last [...] raise sugar. record my blood sugar results. [employer] is safe and secure way for you [...] provider and work towards quitting. Education Resources: [place] Diabetic Association Site http://diabetes.org Academy of Nutrition & Dietetics Site http://eatright.org National Smoking Cessation Site http://smokefree.gov Glycohemoglobin A1c < 7.0 Diabetes 7.7 (10/17/2018 8:02 No Magalys Massey FNP AM ERINT) Note: This is an individualized treatment (diabetes [...] Personal/Family 1965 [address] (Home) [place], [place] [phone] [address] (Work) documented as of this encounter Advance Directives Code Status Date Activated Date Inactivated Comments Full Code 10/07/2016 11:25 AM 10/07/2016 2:45 PM Does patient have decision making capacity? Yes
[2019-02-10 17:56] VITALS: BP 123/80
== END 2019-02-10 18:00 | disposition home or self-care (01) ==
LOC: ED 14:58
DX: S93.402A Sprain of unspecified ligament of left ankle, initial encounter (principal); S39.012A Strain of muscle, fascia and tendon of lower back, initial encounter; S80.211A Abrasion, right knee, initial encounter; S50.311A Abrasion of right elbow, initial encounter; W19.XXXA Unspecified fall, initial encounter; Y92.9 Unspecified place or not applicable; E11.9 Type 2 diabetes mellitus without complications; Z79.4 Long term (current) use of insulin; Z79.84 Long term (current) use of oral hypoglycemic drugs; J45.909 Unspecified asthma, uncomplicated; K21.9 Gastro-esophageal reflux disease without esophagitis; F41.9 Anxiety disorder, unspecified; F32.9 Major depressive disorder, single episode, unspecified; Z88.6 Allergy status to analgesic agent; F17.210 Nicotine dependence, cigarettes, uncomplicated
CPT/HCPCS: 72131; 99283

== ENCOUNTER 2019-06-04 07:03 | Emergency (ER) | payer OTHER ==
--- NOTE | 2019-06-04 07:15 | ED ---
Influenza-Like Illness - HPI Summary HPI Summary: Patient is a 54 y/o F presenting to the ED for a chief complaint of influenza- like illness for the last week. Patient complains of fever, nasal congestion, sore throat, cough for the last few months, urinary burning for the last few days, urinary frequency, and suprapubic abdominal pain. She denies vaginal bleeding or vaginal discharge. No aggravating or alleviating factors are reported. PMHx is significant for asthma, peripheral neuropathy, and DM for which she takes insulin. She denies a UTI history. Patient admits tobacco use of 4 cigarettes daily. - History of Current Complaint Chief Complaint: EDGeneral Time Seen by Provider: 06/04/19 07:10 Hx Obtained From: Patient Onset/Duration: Sudden Onset, Still Present Severity: Moderate Associated Signs & Symptoms: Fever - In vitals, 97.7 F, Cough, Sore Throat, Nasal Congestion - Allergy/Home Medications Allergies/Adverse Reactions: Allergies Allergy/AdvReac Type Severity Reaction Status Date / Time dog dander Allergy Rash Verified 06/04/19 07:07 ibuprofen Allergy Swelling Verified 06/04/19 07:07 Of Face,Lips,& Throat Home Medications: Home Medications Albuterol HFA INHALER* [Proair Hfa Inhaler*] 2 puff INH Q4H PRN 04/18/13 [ History Confirmed 06/04/19] Benzonatate CAP* [Tessalon CAP*] 200 mg PO TID PRN 04/18/13 [History Confirmed 06/04/19] Cyclobenzaprine TAB* [Flexeril TAB*] 10 mg PO TID PRN 04/18/13 [History Confirmed 06/04/19] Escitalopram * [Lexapro (NF)] 20 mg PO DAILY 04/18/13 [History Confirmed ] Fluticasone-Salmeterol 250-50* [Advair Diskus 250-50*] 1 puff INH BID 04/18/13 [ History Confirmed 06/04/19] LoraTADine TAB(NF) [Claritin TAB*] 10 mg PO DAILY 04/18/13 [History Confirmed ] Montelukast Sodium TAB* [Singulair TAB*] 10 mg PO BEDTIME 04/18/13 [History Confirmed 06/04/19] Multivitamins/Minerals TAB* [Thera M Plus TAB*] 1 tab PO DAILY 04/18/13 [ History Confirmed 06/04/19] Omeprazole CAP (NF) [Prilosec CAP*] 20 mg PO BID PRN 04/18/13 [History Confirmed 06/04/19] glipiZIDE TAB.XL* [Glucotrol Xl*] 5 mg PO BID 04/18/13 [History Confirmed ] metFORMIN* [Glucophage*] 1,000 mg PO 0800,1700 04/18/13 [History Confirmed 06/04] traMADol TAB* [Ultram*] 50 mg PO Q6HR PRN 04/18/13 [History Confirmed 06/04/19] traZODone TAB* [Desyrel TAB*] 150 mg PO BEDTIME 04/18/13 [History Confirmed ] Insulin Glargine,Hum.rec.anlog [Lantus] 11 unit SC BEDTIME 12/04/13 [History Confirmed 06/04/19] Albuterol 2.5MG/3ML (0.083%)* [Ventolin 2.5 MG/3 ML NEB.MARYANN*] 3 ml INH Q4H PRN 03/07/16 [History Confirmed 06/04/19] Atorvastatin* [Lipitor 20 MG*] 20 mg PO DAILY 03/07/16 [History Confirmed ] LORazepam [Ativan 0.5 MG TAB] 0.5 mg PO BID PRN 03/07/16 [History Confirmed ] Tolterodine LA (NF) [Detrol LA (NF)] 4 mg PO DAILY 03/07/16 [History Confirmed 06/04/19] Acetaminophen [Acetaminophen Extra Strength] 500 mg PO Q6H PRN 06/04/19 [ History Confirmed 06/04/19] Naproxen [Naproxen 500 mg tab] 500 mg PO BID PRN 06/04/19 [History Confirmed ] Triamcinolone 0.025% CM(NF) [Kenalog Cream 0.025%*] 1 applic TOPICAL BID [History Confirmed 06/04/19] PMH/Surg Hx/FS Hx/Imm Hx Previously Healthy: Yes Endocrine/Hematology History: Reports: Hx Diabetes - IDDM (lanuts + metformin) Denies: Hx Anticoagulant Therapy, Hx Blood Disorders Cardiovascular History: Denies: Other Cardiovascular Problems/Disorders Respiratory History: Reports: Hx Asthma - albuterol and advair INHALERS + singulair, Hx Seasonal Allergies - takes daily anti-histamines Denies: Other Respiratory Problems/Disorders GI History: Reports: Hx Gastroesophageal Reflux Disease - omeprazole, Hx Ulcer Denies: Other GI Disorders Musculoskeletal History: Reports: Hx Back Problems, Hx Tendonitis - RIGHT HAND Denies: Hx Osteoporosis Comment Only: Hx Arthritis - RIGHT KNEE, LEFT SHOULDER Sensory History: Reports: Hx Contacts or Glasses - bifocals Denies: Hx Deafness Opthamlomology History: Reports: Hx Contacts or Glasses - bifocals Denies: Hx Legally Blind EENT History: Denies: Hx Deafness Neurological History: Reports: Hx Headaches, Hx Peripheral Neuropathy - 2ndry to DM Denies: Other Neuro Impairments/Disorders Psychiatric History: Reports: Hx Anxiety - ON MEDS, Hx Depression - ON MEDS - Surgical History Surgical History: Yes Surgery Procedure, Year, and Place: RIGHT CARPAL TUNNEL, 2002, [facility]. 2006, HYSTERECTOMY, [facility]. 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, Hx Shingles - LEFT SIDE OF FACE Denies: Traveled Outside the [place] in Last 30 Days - Family History Known Family History: Positive: Hypertension, Diabetes - Social History Occupation: Unemployed Alcohol Use: None Alcohol Amount: hx ETOH abuse, in recovery since 1995 Hx Substance Use: Yes Substance Use Type: Reports: Marijuana Hx Tobacco Use: Yes Smoking Status (MU): Current Every Day Smoker Type: Cigarettes Amount Used/How Often: 4 cigs per day - was 2 PPD smoker in past Have You Smoked in the Last Year: Yes Review of Systems Positive: Fever - In vitals, 97.7 F Positive: Sore Throat, Other - Positive nasal congestion Positive: Cough Positive: Abdominal Pain - Suprapubic Positive: burning - Urinary, frequency - Urinary. Negative: discharge - Vaginal , other - Negative vaginal bleeding All Other Systems Reviewed And Are Negative: Yes Physical Exam - Summary Physical Exam Summary: Constitutional: Well-developed, Well-nourished, Alert. (-) Distressed Skin: Warm, Dry HENT: Normocephalic; Atraumatic Eyes: Conjunctiva normal Neck: Musculoskeletal ROM normal neck. (-) JVD, (-) Stridor, (-) Nuchal rigidity Cardio: Rhythm regular, rate normal, Heart sounds normal; Intact distal pulses; Radial pulses are 2+ and symmetric. (-) Murmur Pulmonary/Chest wall: Effort normal. (-) Respiratory distress, (-) Wheezes, (-) Rales Abd: Soft, (-) Distension, (-) Guarding, (-) Rebound. Suprapubic tenderness. Musculoskeletal: (-) Edema Lymph: (-) Cervical adenopathy Neuro: Alert, Oriented x3 Psych: Mood and affect Normal Triage Information Reviewed: Yes Vital Signs On Initial Exam: Initial Vitals Temp Pulse Resp BP Pulse Ox 97.7 F 92 18 125/95 97 06/04/19 07:05 06/04/19 07:05 06/04/19 07:05 06/04/19 07:05 06/04/19 07:05 Vital Signs Reviewed: Yes Procedures - Sedation Patient Received Moderate/Deep Sedation with Procedure: No Diagnostics - Vital Signs Vital Signs Temp Pulse Resp BP Pulse Ox 06/04/19 07:05 97.7 F 92 18 125/95 97 - Laboratory Lab Statement: Any lab studies that have been ordered have been reviewed, and results considered in the medical decision making process. - Radiology Chest X-ray Radiology Interpretation Completed By: Radiologist Summary of Radiographic Findings: Chest X-ray IMPRESSION: No radiographic evidence of acute cardiopulmonary disease. Reviewed by Dr. Knapp. Re-Evaluation - Re-Evaluation First Eval Re-Evaluation Time: 08:39 Change: Improved Comment: At 08:39, patient is feeling better. UA neg CXR normal. Flu Symptom Course/Dx - Course Course Of Treatment: 54 y/o F w DM and asthma p/w dysuria and cough. - VSS NAD. afebrile. Given hx prolonged cough will check CXR but suspect 2/2 chronic tobacco use. - UTI symptoms - denies abnormal vaginal discharge or bleeding. Check UA. - UA and CXR w/o e/o infection. Easy WOB on RA. No wheezing, abd soft. Plan for dc to home. Return for worsening symptoms. - Diagnoses Provider Diagnoses: Dysuria, Cough, Tobacco use Discharge ED - Sign-Out/Discharge Documenting (check all that apply): Patient Departure - Discharge - Discharge Plan Condition: Stable Disposition: HOME Patient Education Materials: Upper Respiratory Infection (ED), Dysuria (ED) Referrals: Trevon Ha MD [Primary Care Provider] - Additional Instructions: You were seen in the emergency department for cough and dysuria. Your x-ray did not show any pneumonia, urine did not show an infection. We advise you to cut down on smoking which will help your cough. If any studies were not completed at the time of discharge you will be called with the relevant results. Please follow up with your primary care doctor in next 2-3 days and return to emergency department for worsening cough, abdominal pain, fevers, or concerning symptoms. It was a pleasure taking care of you today. - Billing Disposition and Condition Condition: STABLE Disposition: Home - Attestation Statements Document Initiated by Grace: Yes Documenting Scribe: Frida Nunez Provider For Whom Grace is Documenting (Include Credential): Krzysztof Knapp MD Scribe Attestation: IFrida, scribed for Krzysztof Knapp MD on 06/04/19 at 0842. Scribe Documentation Reviewed: Yes Provider Attestation: The documentation as recorded by the Frida reyez accurately reflects the service I personally performed and the decisions made by Krzysztof will MD Status of Scribanthony Document: Viewed
[2019-06-04 08:09] LABS: Urine Appearance Clear; Urine Bilirubin Negative (Negative); Urine Blood Negative (Negative); Urine Color Yellow; Urine Glucose Negative (Negative); Urine Ketones Negative (Negative); Urine Nitrite Negative (Negative); Urine Protein Negative (Negative); Urine Specific Gravity 1.012 (1.010-1.030); Urine Urobilinogen Negative (Negative)
[2019-06-04 09:05] VITALS: BP 138/86
== END 2019-06-04 08:56 | disposition home or self-care (01) ==
LOC: ED 07:03
DX: R30.0 Dysuria (principal); R35.0 Frequency of micturition; R09.81 Nasal congestion; J02.9 Acute pharyngitis, unspecified; R05 Cough; E11.42 Type 2 diabetes mellitus with diabetic polyneuropathy; Z79.84 Long term (current) use of oral hypoglycemic drugs; J45.909 Unspecified asthma, uncomplicated; K21.9 Gastro-esophageal reflux disease without esophagitis; F41.9 Anxiety disorder, unspecified; F32.9 Major depressive disorder, single episode, unspecified; Z88.6 Allergy status to analgesic agent; Z91.048 Other nonmedicinal substance allergy status; F17.210 Nicotine dependence, cigarettes, uncomplicated
CPT/HCPCS: 71046; 81003; 99283